=== PATIENT | male | born 1930 | race Caucasian/White ===

== ENCOUNTER 2018-12-08 20:19 | Inpatient (IN) | payer BC, MEDICARE ==
[~2018-12-08] VITALS: Ht 180.3 cm; Wt 68.8 kg
[2018-12-08] MEDS ORDERED: HYDROCODONE/APAP (5/325) TAB PO ONE (21:30)
--- NOTE | 2018-12-08 21:34 | ERD ---
ER Documentation Chief Complaint Chief Complaint bib ra from home for fall, knee pain, and right occipital lac, HPI 88-year-old male with dementia brought in by ambulance from home after he had a ground-level fall. Patient states that he had severe pain in his knees due to osteoarthritis. When he stood up today, he felt pain in his knees which he thinks is why he fell. He denies being dizzy or having any headache, chest pain, or shortness of breath prior to the fall. He is not sure if he hit his head. He is denying any headache at this time. However the patient is not very clear about the events leading to the fall. He is denying any physical pain at this time. ROS Review of systems are limited secondary to patient's dementia Medications Home Meds Reported Medications Memantine HCl/Donepezil HCl (Namzaric 28 mg-10 mg Capsule) 1 Each Cap.spr.24, 1 CAP PO DAILY for 90 Days, #90 12/09/18 Diclofenac Sodium* (Voltaren* Gel) 1% -100 Gm Gel, 2 GM TOP QID, #1 TUB 12/09/18 Levothyroxine Sodium* (Levothyroxine Sodium*) 175 Mcg Tablet, 175 MCG PO QAM for 90 Days, #90 12/09/18 Lisinopril* (Lisinopril*) 10 Mg Tablet, 10 MG PO DAILY for 90 Days 12/09/18 Allergies Allergies: Coded Allergies: No Known Allergy (Unverified , 12/08/18) PMhx/Soc History of Surgery: Yes (Appendectomy) Hx Neurological Disorder: Yes (Dementia) Hx Cardiac Disorders: Yes (Patient's blood pressure was elevated (>120/80) but appears stable without evidence of hypertension emergency or urgency. The patient was counseled about the risks of hypertension and urged to pursue outpatient monitoring and therapy within a week with their primary care physician.) Hx Psychiatric Problems: No Hx Alcohol Use: No Hx Substance Use: No Hx Tobacco Use: No Smoking Status: Never smoker FmHx No significant medical history Physical Exam Vitals Vital Signs Date Temp Pulse Resp B/P (MAP) Pulse Ox O2 O2 Flow FiO2 Time Delivery Rate 12/09/18 72 21 161/72 99 Nasal 2.0 01:16 (101) Cannula 12/08/18 71 17 148/78 97 Nasal 2.0 23:01 (101) Cannula 12/08/18 98.6 67 19 135/82 99 20:28 (99) Physical Exam Const: No acute distress, well-appearing, nontoxic Head: Small superficial abrasion of the right parietal scalp with small hematoma. No skull depression. Mild tenderness to palpation. Eyes: Normal Conjunctiva, PERRLA, EOMI ENT: Normal External Ears, Nose and Mouth. Neck: Full range of motion. No meningismus. No C-spine tenderness Resp: Clear to auscultation bilaterally. Chest wall nontender Cardio: Regular rate and rhythm, no murmurs. 2+ DP and PT pulses bilaterally. 2+ radial pulses bilaterally. Abd: Soft, non tender, non distended. Normal bowel sounds Skin: No petechiae or rashes Back: No midline or flank tenderness Ext: No cyanosis, or edema. Normal to inspection and palpation without any deformities. Full range of motion at all joints. Stable. Neur: Awake and alert, oriented to self and place. Normal speech. No facial asymmetry. Strength and sensations intact in all 4 extremities. Psych: Normal Mood and Affect Result Diagram: 12/08/18212312/08/182123 Results 24 hrs Laboratory Tests Test 12/08/18 21:24 12/08/18 21:30 12/08/18 21:51 White Blood Count 10.2 10^3/ul Red Blood Count 2.93 10^6/ul Hemoglobin 8.8 g/dl Hematocrit 24.1 % Mean Corpuscular Volume 82.3 fl Mean Corpuscular Hemoglobin 30.0 pg Mean Corpuscular 36.5 g/dl Hemoglobin Concent Red Cell Distribution Width 13.3 % Platelet Count 252 10^3/UL Mean Platelet Volume 8.3 fl Immature Granulocytes % 0.400 % Neutrophils % 84.0 % Lymphocytes % 5.6 % Monocytes % 9.0 % Eosinophils % 0.4 % Basophils % 0.6 % Nucleated Red Blood Cells % 0.0 /100WBC Immature Granulocytes # 0.040 10^3/ul Neutrophils # 8.5 10^3/ul Lymphocytes # 0.6 10^3/ul Monocytes # 0.9 10^3/ul Eosinophils # 0.0 10^3/ul Basophils # 0.1 10^3/ul Nucleated Red Blood Cells # 0.0 10^3/ul Prothrombin Time 13.2 Sec Prothrombin Time Ratio 1.0 INR International 0.99 Normalized Ratio Activated Partial Thromboplast 27.8 Sec Time Sodium Level 120 mmol/L Potassium Level 4.5 mmol/L Chloride Level 88 mmol/L Carbon Dioxide Level 23 mmol/L Anion Gap 9 Blood Urea Nitrogen 11 mg/dl Creatinine 0.85 mg/dl Est Glomerular Filtrat mL/min Rate mL/min Glucose Level 92 mg/dl Calcium Level 8.1 mg/dl Bedside Glucose 108 mg/dL Urine Color YELLOW Urine Clarity CLEAR Urine pH 6.0 Urine Specific [place] 1.011 Urine Ketones TRACE mg/dL Urine Nitrite NEGATIVE mg/dL Urine Bilirubin NEGATIVE mg/dL Urine Urobilinogen NEGATIVE mg/dL Urine Leukocyte Esterase NEGATIVE [place]/ul Urine Microscopic RBC 1 /HPF Urine Microscopic WBC 0 /HPF Urine Hemoglobin 1+ mg/dL Urine Osmolality 310 mOsm/kg Urine Random Sodium 32 mmol/L Urine Random Potassium 56.4 mmol/L Urine Glucose NEGATIVE mg/dL Urine Total Protein NEGATIVE mg/dl Osmolality 241 mOsm/kg Current Medications Medications Dose Sig/[place] Start Time Status Last (Trade) Ordered Route PRN Stop Time Admin Dose Reason Admin 1 tab ONCE ONCE 12/08/18 DC 12/08/18 Acetaminophen PO 21:30 12/08/18 21:27 / 21:31 Hydrocodone Bitart (Horace (5/325)) Ondansetron 4 mg ER BRIDGE 12/09/18 HCl (Zofran PRN IV 00:00 12/09/18 Inj) NAUSEA/VOMITI 23:59 NG 650 mg ER BRIDGE 12/09/18 Acetaminophen PRN PO 00:00 12/09/18 (Tylenol .MILD PAIN 23:59 Tab) 1-3 OR TEMP Sodium 1,000 ml @ Q20H IV 12/08/18 12/09/18 Chloride 50 mls/hr 23:42 00:23 IV Flush 3 ml PER 12/09/18 (NS 3 ml) PROTOCOL IV 00:00 Ondansetron 4 mg Q6H PRN 12/09/18 HCl (Zofran IV 00:00 Inj) NAUSEA/VOMITI NG 650 mg Q6H PRN 12/09/18 Acetaminophen PO .PAIN 1-3 00:00 (Tylenol OR TEMP Tab) Zolpidem 5 mg QHS PRN 12/09/18 Tartrate PO .INSOMNIA 00:00 (Ambien) Procedures/MDM EMERGENT LABS AND DIAGNOSTIC STUDIES: Lab Results above were reviewed and interpreted by me. CBC: Anemia, no evidence of infection BMP: Significant hyponatremia and hypochloremia. No e/o clinically significant acidosis, alkalosis, renal failure, diabetic ketoacidosis Troponin within normal limits, not indicative of cardiac ischemia UA: no evidence of infection 12-lead EKG was interpreted by Lavern Larson MD: Sinus Rhythm with first-degree AV block with ventricular rate of 64 beats per minute Normal axis Normal intervals No acute ST or T wave changes suggestive of acute ischemia or STEMI. Radiology Results as interpreted by Radiology below were reviewed by Mars Larson MD: CT head shows no acute abnormalities Chest x-ray shows no significant abnormalities Initial Nursing notes reviewed. Previous Medical Records requested via the Electronic Health Record. EMERGENCY DEPARTMENT COURSE / MEDICAL DECISION MAKING: Patient presents after a ground-level fall with evidence of head injury. He is neurovascularly intact on exam with stable vitals. Labs did show evidence of hyponatremia, which I suspect may be secondary to dehydration. However this will need further work-up. CT head did not show any traumatic abnormalities. I do not suspect acute stroke of the cause for the patient's fall. There does not seem to be any infection on work-up. Spoke with the admitting physician. He accepted the patient for admission. I will defer any further work-up to the i npatient team. Accepting Care Team: Current data and ongoing care discussed. Time: Time of admission Primary Provider: Dr. Mcgowan, macroeconomics professor for PCP Dr. Fall Consulting: none Outstanding Data: none Departure Diagnosis: Primary Impression: Hyponatremia Additional Impressions: Fall with no significant injury Encounter type: initial encounter Qualified Codes: W19.XXXA - Unspecified fall, initial encounter Head trauma Encounter type: initial encounter Qualified Codes: S09.90XA - Unspecified injury of head, initial encounter Hematoma of right parietal scalp Encounter type: initial encounter Qualified Codes: S00.03XA - Contusion of scalp, initial encounter Anemia Anemia type: unspecified type Qualified Codes: D64.9 - Anemia, unspecified Condition: Serious NESS LARSON MD Dec 08, 2018 21:34
[2018-12-08] MEDS ORDERED: SOD CHLORIDE 0.45% 1,000 ML IV SCH (23:42)
[2018-12-09] MEDS ORDERED: ACETAMINOPHEN 325 MG TAB PO PRN
[2018-12-09] MEDS ORDERED: NACL 0.9% 3 ML SYG IV SCH
[2018-12-09] MEDS ORDERED: ONDANSETRON 4 MG INJ IV PRN ×2
[2018-12-09] MEDS ORDERED: LEVO175T6 PO (01:17)
[2018-12-09] MEDS ORDERED: MEMA1CAP3 PO (01:17)
[2018-12-09] MEDS ORDERED: LISI10TA2 PO (01:17)
[2018-12-09] MEDS ORDERED: DICL100G37 TOP (01:17)
[2018-12-09 02:30] VITALS: Ht 180.3 cm; Wt 68.8 kg
[2018-12-09 03:07] VITALS: BP 173/81; PULSE 61; RESP 20
[2018-12-09 07:48] VITALS: BP 145/64; PULSE 60; RESP 20
[2018-12-09] MEDS: PANTOPRAZOLE 40 MG INJ IV SCH (08:05)
[2018-12-09] MEDS: LISINOPRIL 10 MG TAB PO SCH (10:17)
--- NOTE | 2018-12-09 10:36 | HP ---
DATE OF ADMISSION: 12/08/2018 ADMITTING DIAGNOSIS: Hyponatremia, head injury. HISTORY OF PRESENT ILLNESS: The patient is an 88-year-old male with Alzheimer dementia, os teoarthritis, hypertension, hyperthyroidism who was brought in by ambulance from home after he had a ground level fall. The patient has been having increasing pain in his knees and has fallen at home. Patient reported to the emergency room staff and myself today that when he stood up yesterday, he fe lt pain and fell afterwards. The patient denied any antecedent dizziness, loss of consciousness, hea dache, chest pain or shortness of breath prior to the fall. The patient is unclear what he injured a nd does not have any headache or pain other than in his knees. REVIEW OF SYSTEMS: No visual loss, no trouble swallowing, no chest pain, no shortness of breath, no cough, no constipation, no diarrhea, no nausea, no vomiting, no dark stools, no blood in the stools. No burning with urination. There is decreased flow with urination. PAST MEDICAL HISTORY: Hypertension, Alzheimer dementia, osteoarthritis, hyponatremia, history of gas tritis in the past and history of prostate cancer and tibial plateau fracture. PAST SURGICAL HISTORY: Cataract extraction with lens implantation and a radical prostatectomy for pr ostate cancer. FAMILY HISTORY: Noncontributory. MEDICATIONS: 1. Memantine/donepezil 28/10 one daily. 2. Diclofenac sodium gel p.r.n. 3. Levothyroxine 175 mcg daily. 4. Lisinopril 10 mg daily. ALLERGIES: NONE. 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 No tobacco, no alcohol use. Lives with his . PHYSICAL EXAMINATION: VITAL SIGNS: In the emergency room, initial temperature 98.6, pulse of 67, respirations 19, blood pr essure 135/82, oxygen saturation 99% on room air. VITAL SIGNS: Currently, temperature 97.6, pulse 60 and regular, respirations 20, blood pressure 145/ 64 and oxygen saturation 94% on room air. GENERAL: Well-developed, well-nourished male in no acute distress, lying in bed. HEENT: Pseudophakia bilaterally. There is pale mucosa. Extraocular muscles intact. Oropharynx emmanuel ar, no exudate. NECK: 2+ carotid upstroke without bruits. No thyromegaly. No lymphadenopathy. No jugular venous d istention. LUNGS: Clear to auscultation bilaterally. HEART: Regular rate and rhythm. There is a I/ systolic murmur in the right upper sternal border w ithout radiation. ABDOMEN: Soft, nontender, mild obesity, no hepatosplenomegaly noted. No bruits. GENITOURINARY: Atrophic testes. No hernias. Normal male, circumcised. RECTAL: No masses noted, brown stool. EXTREMITIES: No cyanosis, clubbing. There are large bilateral varicosities. There is moderate join t line tenderness with valgus deformity of his bilateral knees and moderate crepitus and tenderness t o palpation along the knee joint line. No effusions. SKIN: There is pallor to the skin. There is a large purplish bruise in the posterior left thigh and there is petechiae/purpura on the anterior left thigh in a linear fashion. There is fading ecchymos es along the upper buttocks and lower back bilaterally. No significant tenderness to palpation. NEUROLOGIC: The patient is alert and oriented x name, unclear of situation, and date. Otherwise, no nfocal examination. LABORATORY EXAMINATION: White blood cell count initially 10.2, hemoglobin of 8.8, hematocrit 24.1, p latelets of 252 with an MCV of 82.3. Repeat white blood cell count is 6.7, hemoglobin of 9.4, hemato crit 26.3, platelets of 279. Absolute retic count of 0.117%, reticulocyte is 3.7%. Sodium initially was 120 with a potassium 4.5, chloride of 88, bicarbonate 23, BUN of 11, creatinine 0.88, glucose of 92, calcium of 8.1. Repeat sodium is 127 with a potassium 3.9, chloride 93, bicarbonate 25, BUN of 9, creatinine 0.78, hemoglobin A1c 5.3. Osmolality serum is 241, calcium 8.6. Iron is 88, TIBC 244, percent saturation 36%, ferritin 219, total bilirubin 1.2, indirect bilirubin 1.2, AST 47, ALT of 23 , alkaline phosphatase 101, lactate dehydrogenase of 885. Albumin 3.5, folate of 3.6. B12 is 379. Urine shows a sodium of 32, potassium of 56.4, 1+ hemoglobin. Osmolality of 310. IMAGING: Brain CT scan shows no acute intracranial abnormality, mild to moderate peripheral and cent ral cerebral volume loss, mild to moderate patchy periventricular and subcortical white matter hypode nsity likely related to chronic microangiopathic changes. Chest x-ray, shallow inspiration with mild bibasilar subsegmental atelectasis. ASSESSMENT AND PLAN: The patient is an 88-year-old male with dementia, hypothyroidism, hyp ertension who fell at home and was found to have significant hyponatremia as well as significant anem ia. The patient is being admitted to telemetry for further evaluation and treatment 1. Hyponatremia, unclear etiology. The patient is having significant sodium in the urine, suggestin g possible syndrome of inappropriate antidiuretic hormone. Repeat sodium is improved at 127. We rylee l have nephrology evaluate the patient and assist with workup and treatment. The patient will be giv en some hypernatremic sodium to assist but we will await nephrology's recommendations before institut ing this. 2. Anemia, unclear etiology. The patient has a normocytic normochromic anemia with normal iron leve ls. The patient does have elevated LDH and stools were brown on examination. We will still do occul t blood x3. We will have hematology evaluate the patient to assist with workup and potential treatme nt. At this point, patient does not require any transfusion. We will continue to monitor his hemato crit and transfuse if necessary. 3. Hypertension. We will continue the patient's lisinopril as well as p.r.n. hydralazine. 4. Hypothyroidism. We will continue the patient's medications and will check thyroid function tests as it can contribute to his hyponatremia. 5. Dementia. We will hold off on patient's medications, but continue to monitor. 6. Sacral decubitus ulcer. We will have a wound consultation. Continue with current dressing treat ment and this was present on admission. Dictated By: SHADI ISSA MD SR/NTS Conf#: [id number] DID#: [id number]
[2018-12-09] MEDS: SOD CHLORIDE 0.9% 1,000 ML IV SCH ×2 (10:46→23:59)
--- NOTE | 2018-12-09 10:54 | CONS ---
DATE OF ADMISSION: 12/08/2018 DATE OF CONSULTATION: 12/08/2018 TYPE OF CONSULTATION: Renal Consultation. Thank you, Dr. Fall, for asking me to participate in the medical management of this patient. REASON FOR CONSULTATION: Hyponatremia. HISTORY OF PRESENT ILLNESS: This 88-year-old man was admitted through the emergency room after he wa s brought in because of a fall at home. He had knee pain and right occipital laceration. The patien t does have a history of dementia and is not a very good historian. On admission to the emergency ro , he was found to have a serum sodium of 120. The emergency room doctor felt that this was related to dehydration. He was given IV fluids and his serum sodium today is up to 127. The patient was al so taking thyroid replacement and Namenda for dementia. At this time, he is awake and alert and conv ersant. He is somewhat oriented to place and he knows the year is 2018, although when questioning hi m further, he does seem confused. That I can tell from the chart, the patient does not have any hist ory of kidney disease, diabetes mellitus. He does have a history of hypertension for which he was ta cesario lisinopril and I assume some arthritis for which he was taking diclofenac gel. CURRENT MEDICATIONS: Include: 1. Synthroid 175 mcg a day. 2. Lisinopril 10 mg a day. 3. Hydralazine p.r.n. high blood pressure. 4. Pantoprazole 40 mg a day. 5. Zofran 4 mg IV p.r.n. 6. Acetaminophen. 7. Zolpidem for sleep. 8. He is currently getting an IV of half normal saline at 50 mL an hour. PHYSICAL EXAMINATION: GENERAL: At this time reveals a well-developed man in no apparent distress. VITAL SIGNS: Temperature 97, pulse is 60, respirations 20, blood pressure 145/64, O2 saturation 94% on room air. HEENT: Head normocephalic. Eyes: Extraocular muscles intact. NOSE AND MOUTH: Normal. NECK: Supple. No neck vein distention. LUNGS: Clear to auscultation. HEART: Regular rhythm. No murmurs, gallops or rubs. ABDOMEN: Soft, nontender, no masses or megaly. EXTREMITIES: No peripheral edema. NEUROLOGIC: Moves all extremities. He is slightly confused. IMPRESSION: 1. Hyponatremia. The patient's serum sodium was low at 120 on admission. It has come up after rece iving IV fluids. Today, serum sodium of 127. The patient had a urine sodium done which was 32. Thi s would be suggestive of some volume depletion, but it is sort of borderline. His thyroid tests are normal except for a slightly low free T3, TSH is normal at 0.475. Folate 3.6, Vitamin B12 379. He d oes have an elevated alkaline phosphatase at 885. He is anemic. I suspect the patient is volume de pleted and this is the cause of his hyponatremia. I would recommend IV fluids of normal saline and t o follow serum sodium. His chest x-ray is unremarkable and his lungs are clear. Therefore, I am not concerned about fluid overload. 2. Anemia. This is being worked up by Dr. Fall. His iron studies seem normal, but he does have an elevated LDH level which brings up the possibility of malignancy. 3. Dementia. 4. Hypertension. PLAN 1. I have reviewed the patient's medications and I do not find any medicines that I would be concern ed about as causing hyponatremia. He can continue his current medications. 2. Will order normal saline at 80 mL an hour and follow serum sodium. 3. Check labs in the morning. 4. I will follow the patient along with you. Dictated By: JEFF GREENWOOD MD, ND/DAY Conf#: [id number] DID#: [id number] CC: TEODORO CARBALLO MD;*End*
[2018-12-09 11:28] VITALS: BP 152/68; PULSE 54; RESP 20
--- NOTE | 2018-12-09 11:47 | CONS ---
Assessment/Plan Assessment/Plan Hospital Course (Demo Recall) 88 yo with Alzheimer's dementia, osteoarthritis, hypertension, hyperthyroidism #anemia normal iron studies B12 borderline, start b12 1000 mcg daily check SPEP/IF/haptoglobin/alphonso LDH is slightly elevated, do not believe this is TTP or overat hemolysis, as typically plt is low and LDH is very significantly elevated in the 1000s may be medications related or given his age, underlying MDS await above w/u thank you Dr Fall for allowing me to participate in the care of this pleasant gentleman Consultation Date/Type/Reason Admit Date/Time Dec 08, 2018 at 23:39 Date/Time of Note DATE: 12/09/18 TIME: 11:42 Hx of Present Illness 88-year-old male with Alzheimer's dementia, osteoarthritis, hypertension, hyperthyroidism who was brought in by ambulance from home after he had a ground level fall. Denies any prior dizziness, loss of consciousness, headache, chest pain or shortness of breath prior to the fall. Labs show a normochromic, near microcytic anemia, normal iron studies, and adequate ferritin. Folate WNL. B12 ok but less than 400. LDH minimally elevated.. Slightly increased indirect bili Pt reports he has lab work done every 2 mos or so but he is not able to tell me what his baseline CBC is he denies any bleeding/weight loss/pain/anorexia unknown if he has had colonoscopy Constitutional: no complaints, improved Eyes: no complaints ENT: no complaints Respiratory: no complaints Cardiovascular: no complaints Gastrointestinal: no complaints Genitourinary: no complaints Musculoskeletal: no complaints Skin: no complaints Neurologic: no complaints Endocrine: no complaints Lymphatic: no complaints Psychological: no complaints, nl mood/affect Past Medical History Home Meds Reported Medications Memantine HCl/Donepezil HCl (Namzaric 28 mg-10 mg Capsule) 1 Each Cap.spr.24, 1 CAP PO DAILY for 90 Days, #90 12/09/18 Diclofenac Sodium* (Voltaren* Gel) 1% -100 Gm Gel, 2 GM TOP QID, #1 TUB 12/09/18 Levothyroxine Sodium* (Levothyroxine Sodium*) 175 Mcg Tablet, 175 MCG PO QAM for 90 Days, #90 12/09/18 Lisinopril* (Lisinopril*) 10 Mg Tablet, 10 MG PO DAILY for 90 Days 12/09/18 Medications Current Medications Ondansetron HCl (Zofran Inj) 4 mg ER BRIDGE PRN IV NAUSEA/VOMITING; Start 12/09/18 at 00:00; Stop 12/09/18 at 23:59 Acetaminophen (Tylenol Tab) 650 mg ER BRIDGE PRN PO .MILD PAIN 1-3 OR TEMP; Start 12/09/18 at 00:00; Stop 12/09/18 at 23:59 IV Flush (NS 3 ml) 3 ml PER PROTOCOL IV ; Start 12/09/18 at 00:00 Ondansetron HCl (Zofran Inj) 4 mg Q6H PRN IV NAUSEA/VOMITING; Start 12/09/18 at 00:00 Acetaminophen (Tylenol Tab) 650 mg Q6H PRN PO .PAIN 1-3 OR TEMP; Start 12/09/18 at 00:00 Zolpidem Tartrate (Ambien) 5 mg QHS PRN PO .INSOMNIA; Start 12/09/18 at 00:00 Pantoprazole (Protonix Iv) 40 mg DAILY@06 IV Last administered on 12/09/18at 08:05; Admin Dose 40 MG; Start 12/09/18 at 08:00 Lisinopril (Zestril) 10 mg DAILY PO Last administered on 12/09/18at 10:17; Admin Dose 10 MG; Start 12/09/18 at 09:00 Levothyroxine Sodium (Synthroid) 175 mcg DAILY@06 PO ; Start 12/10/18 at 06:00 Hydralazine HCl (Apresoline) 5 mg Q6H PRN IV SBP>180 OR DBP>100; Start 12/09/18 at 09:00 Sodium Chloride 1,000 ml @ 80 mls/hr [id number] IV Last administered on 12/09/18at 10:46; Admin Dose 80 MLS/HR; Start 12/09/18 at 10:30 Allergies: Coded Allergies: No Known Allergy (Unverified , 12/08/18) Social History Smoking Status: Never smoker Exam/Review of Systems Exam Vitals Vital Signs Date Temp Pulse Resp B/P (MAP) Pulse Ox O2 O2 Flow FiO2 Time Delivery Rate 12/09/18 97.6 54 20 152/68 94 Room Air 11:28 (96) 12/09/18 2.0 02:45 Intake and Output 12/08/18 12/08/18 12/09/18 1515:00 23:00 07:00 OutputOutput Total 800 ml BalanceBalance -800 ml Constitutional: alert, oriented, well developed, frail Psych: no complaints, nl mood/affect Neck: supple, non-tender Gastrointestinal: soft, nl liver, spleen, non-tender Musculoskeletal: nl extremities to inspection, nl gait and stance 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, nl mental status, nl speech, nl strength Results Result Diagram: 12/09/18 0638 12/09/18 0638 Results 24hrs Laboratory Tests Test 12/08/18 21:24 12/08/18 21:30 12/08/18 21:51 12/09/18 06:38 White Blood Count 10.2 6.7 # Red Blood Count 2.93 L 3.19 L Hemoglobin 8.8 L 9.4 L Hematocrit 24.1 L 26.3 L Mean Corpuscular Volume 82.3 82.4 Mean Corpuscular 30.0 29.5 Hemoglobin Mean Corpuscular 36.5 35.7 Hemoglobin Concent Red Cell Distribution 13.3 13.5 Width Platelet Count 252 279 Mean Platelet Volume 8.3 8.3 Immature Granulocytes % 0.400 0.300 Neutrophils % 84.0 H 79.4 H Lymphocytes % 5.6 L 8.5 L Monocytes % 9.0 9.9 Eosinophils % 0.4 1.3 Basophils % 0.6 0.6 Nucleated Red Blood 0.0 0.0 Cells % Immature Granulocytes # 0.040 H 0.020 Neutrophils # 8.5 H 5.4 Lymphocytes # 0.6 L 0.6 L Monocytes # 0.9 0.7 Eosinophils # 0.0 0.1 Basophils # 0.1 0.0 Nucleated Red Blood 0.0 0.0 Cells # Prothrombin Time 13.2 Prothrombin Time Ratio 1.0 INR International 0.99 Normalized Ratio Activated 27.8 Partial Thromboplast Time Sodium Level 120 L 127 L Potassium Level 4.5 3.9 Chloride Level 88 L 93 L Carbon Dioxide Level 23 25 Anion Gap 9 9 Blood Urea Nitrogen 11 9 Creatinine 0.85 0.78 Est Glomerular Filtrat Rate mL/min Glucose Level 92 85 Calcium Level 8.1 L 8.6 Bedside Glucose 108 Urine Color YELLOW Urine Clarity CLEAR Urine pH 6.0 Urine Specific [place] 1.011 Urine Ketones TRACE A Urine Nitrite NEGATIVE Urine Bilirubin NEGATIVE Urine Urobilinogen NEGATIVE Urine Leukocyte Esterase NEGATIVE Urine Microscopic RBC 1 Urine Microscopic WBC 0 Urine Hemoglobin 1+ H Urine Osmolality 310 Urine Random Sodium 32 Urine Random Potassium 56.4 Urine Glucose NEGATIVE Urine Total Protein NEGATIVE Osmolality 241 L Hemoglobin A1c 5.3 Iron Level 88 Total Iron Binding 244 Capacity Percent Iron Saturation 36 Ferritin 219.0 Total Bilirubin 1.2 Direct Bilirubin 0.00 Indirect Bilirubin 1.2 H Aspartate Amino 47 H Transf (AST/SGOT) Alanine 23 Aminotransferase (ALT/SG PT) Alkaline Phosphatase 101 Lactate Dehydrogenase 885 H Total Protein 6.2 Albumin 3.5 Globulin 2.70 Albumin/Globulin Ratio 1.29 Vitamin B12 Level 379 Folate 3.6 Test 12/09/18 07:06 Erythrocyte 8 Sedimentation Rate Absolute Reticulocyte 0.117 H Count Percent Reticulocyte 3.7 H Count Thyroid Stimulating 0.475 Hormone (TSH) Free Thyroxine 1.40 Free Triiodothyronine 2.06 L (T3) pg/mL Medications Medication Current Medications Ondansetron HCl (Zofran Inj) 4 mg ER BRIDGE PRN IV NAUSEA/VOMITING; Start 12/09/18 at 00:00; Stop 12/09/18 at 23:59 Acetaminophen (Tylenol Tab) 650 mg ER BRIDGE PRN PO .MILD PAIN 1-3 OR TEMP; St art 12/09/18 at 00:00; Stop 12/09/18 at 23:59 IV Flush (NS 3 ml) 3 ml PER PROTOCOL IV ; Start 12/09/18 at 00:00 Ondansetron HCl (Zofran Inj) 4 mg Q6H PRN IV NAUSEA/VOMITING; Start 12/09/18 at 00:00 Acetaminophen (Tylenol Tab) 650 mg Q6H PRN PO .PAIN 1-3 OR TEMP; Start 12/09/18 at 00:00 Zolpidem Tartrate (Ambien) 5 mg QHS PRN PO .INSOMNIA; Start 12/09/18 at 00:00 Pantoprazole (Protonix Iv) 40 mg DAILY@06 IV Last administered on 12/09/18at 08:05; Admin Dose 40 MG; Start 12/09/18 at 08:00 Lisinopril (Zestril) 10 mg DAILY PO Last administered on 12/09/18at 10:17; Admin Dose 10 MG; Start 12/09/18 at 09:00 Levothyroxine Sodium (Synthroid) 175 mcg DAILY@06 PO ; Start 12/10/18 at 06:00 Hydralazine HCl (Apresoline) 5 mg Q6H PRN IV SBP>180 OR DBP>100; Start 12/09/18 at 09:00 Sodium Chloride 1,000 ml @ 80 mls/hr [id number] IV Last administered on 12/09/18at 10:46; Admin Dose 80 MLS/HR; Start 12/09/18 at 10:30 MINDY MEAD Dec 09, 2018 11:47
[2018-12-09 15:24] VITALS: BP 146/69; PULSE 59; RESP 20
[2018-12-09 20:00] VITALS: BP 175/79; PULSE 64; PULSE 67; RESP 20
[2018-12-09] MEDS: ZOLPIDEM 5 MG TAB PO PRN (21:04)
[2018-12-10] VITALS: BP 172/76; PULSE 59; RESP 22
[2018-12-10 04:00] VITALS: BP 184/82; PULSE 68; RESP 20
[2018-12-10] MEDS ORDERED: PANTOPRAZOLE 40 MG INJ IV SCH (06:00)
[2018-12-10] MEDS: PANTOPRAZOLE 40 MG INJ IV SCH (06:24)
[2018-12-10] MEDS: LEVOTHYROXINE 175 MCG TAB PO SCH (06:24)
[2018-12-10] MEDS: hydrALAzine 20 MG INJ IV PRN (06:25)
[2018-12-10] MEDS: ACETAMINOPHEN 325 MG TAB PO PRN (06:54)
[2018-12-10 08:26] VITALS: BP 178/75; PULSE 67; RESP 17
[2018-12-10] MEDS: LISINOPRIL 10 MG TAB PO SCH (08:53)
--- NOTE | 2018-12-10 09:25 | PN ---
DATE: 12/10/2018 SUBJECTIVE: Patient is complaining of knee pain, but otherwise without complaint. OBJECTIVE: VITAL SIGNS: Temperature 97.5, pulse 67, respirations 17, blood pressure 178/75 but as high as 184/8 2, oxygen saturation 94% on room air. GENERAL: Well-developed, well-nourished male in no acute distress, lying in bed. SKIN: Multiple areas of ecchymoses on extremities, back. LUNGS: Clear to auscultation bilaterally. HEART: Regular rate and rhythm. ABDOMEN: Soft, nontender. EXTREMITIES: No cyanosis, clubbing; knees, moderate tenderness to palpation along the joint line. NEUROLOGIC: Patient is alert and oriented to name and situation, otherwise nonfocal. LABORATORY DATA: Sodium 130, potassium 3.7, chloride 97, bicarbonate 25, BUN of 9, creatinine 0.8, g lucose of 90. Lactate dehydrogenase 777, total protein 5.4, free T3 of 2.06. TSH is 0.475, free T4 1.4, hemoglobin 9.6, hematocrit 26.3, platelets 256. White blood cell count 7.0, haptoglobin is pend ing. ASSESSMENT AND PLAN: 1. Hyponatremia, improved with hydration. Appreciate Dr. Patterson's input into this case. We rylee l continue with rehydration and monitoring patient's sodium and continue on telemetry due to potentia l neurologic compromise. 2. Anemia, stable, unclear etiology. Appreciate Dr. Romo's input into this case. We will rupa nue with workup and no transfusion needed at this point and no evidence of acute bleed. Patient has not had colonoscopy in years, but he is 88 years old, so has not been done in recent history. 3. Hypertension, labile, likely due to meds, IV fluids, sodium. Will continue with patient's medica tions as well as p.r.n. hydralazine. 4. Dementia, stable. Continue off of his medications, 5. Arthritis. We will restart patient's diclofenac gel. Dictated By: SHADI ISSA MD SR/NTS Conf#: [id number] DID#: [id number] CC: TEODORO CARBALLO MD;*[facility]*
[2018-12-10] MEDS: DICLOFENAC SODIUM 1% GEL 100 GM TUBE TP SCH ×4 (10:22→20:40)
[2018-12-10] MEDS: SOD CHLORIDE 0.9% 1,000 ML IV SCH (10:25)
[2018-12-10 12:03] VITALS: BP 165/77; PULSE 66; RESP 17
--- NOTE | 2018-12-10 14:17 | CONS ---
Assessment/Plan Assessment/Plan Hospital Course (Demo Recall) 1. Hyponatremia. His serum sodium is correcting with IV saline. His hyponatremia seems to be due to volume depletion. I would continue IV saline. Check labs in a.m. 2. Anemia. This is being worked up by Dr. Fall and Dr. Romo for hematology. 3. Dementia. 4. Hypertension. 5. He complains of bilateral knee joint pain. Will instruct nurse to give Tylenol on an as-needed basis to see if that helps with the pain control. Consultation Date/Type/Reason Admit Date/Time Dec 08, 2018 at 23:39 Initial Consult Date Type of Consult Nephrology Date/Time of Note DATE: 12/10/18 TIME: 14:11 24 HR Interval Summary Free Text/Dictation This patient is being seen in nephrologic follow-up. He is awake. He is complaining of severe knee pain bilateral. Exam/Review of Systems Exam Vitals Vital Signs Date Temp Pulse Resp B/P (MAP) Pulse Ox O2 O2 Flow FiO2 Time Delivery Rate 12/10/18 98.8 66 17 165/77 95 12:03 (106) 12/09/18 Room Air 15:24 12/09/18 2.0 02:45 Intake and Output 12/09/18 12/09/18 12/10/18 1515:00 23:00 07:00 IntakeIntake Total 1100 ml 480 ml 600 ml OutputOutput Total 450 ml 850 ml 500 ml BalanceBalance 650 ml -370 ml 100 ml Constitutional: alert, oriented, frail Psych: confusion Respiratory: clear to auscultation, normal air movement Cardiovascular: regular rate and rhythm Gastrointestinal: soft, non-tender Musculoskeletal: nl extremities to inspection Results Result Diagram: 12/10/18 0614 12/10/18 0614 Results 24hrs Laboratory Tests Test 12/10/18 06:14 White Blood Count 7.0 Red Blood Count 3.11 L Hemoglobin 9.2 L Hematocrit 26.3 L Mean Corpuscular Volume 84.6 Mean Corpuscular Hemoglobin 29.6 Mean Corpuscular Hemoglobin Concent 35.0 Red Cell Distribution Width 14.4 Platelet Count 256 Mean Platelet Volume 8.6 Immature Granulocytes % 0.400 Neutrophils % 80.3 H Lymphocytes % 7.6 L Monocytes % 9.6 Eosinophils % 1.4 Basophils % 0.7 Nucleated Red Blood Cells % 0.0 Immature Granulocytes # 0.030 Neutrophils # 5.6 Lymphocytes # 0.5 L Monocytes # 0.7 Eosinophils # 0.1 Basophils # 0.1 Nucleated Red Blood Cells # 0.0 Sodium Level 130 L Potassium Level 3.7 Chloride Level 97 Carbon Dioxide Level 25 Anion Gap 8 Blood Urea Nitrogen 9 Creatinine 0.80 Est Glomerular Filtrat Rate mL/min Glucose Level 90 Calcium Level 8.2 L Total Bilirubin 0.9 Direct Bilirubin 0.00 Indirect Bilirubin 0.9 Aspartate Amino Transf (AST/SGOT) 42 Alanine Aminotransferase (ALT/SGPT) 16 Alkaline Phosphatase 90 Lactate Dehydrogenase 777 H Total Protein 6.1 Albumin 3.4 Globulin 2.70 Albumin/Globulin Ratio 1.25 Medications Medication Current Medications IV Flush (NS 3 ml) 3 ml PER PROTOCOL IV ; Start 12/09/18 at 00:00 Ondansetron HCl (Zofran Inj) 4 mg Q6H PRN IV NAUSEA/VOMITING; Start 12/09/18 at 00:00 Acetaminophen (Tylenol Tab) 650 mg Q6H PRN PO .PAIN 1-3 OR TEMP Last administered on 12/10/18at 06:54; Admin Dose 650 MG; Start 12/09/18 at 00:00 Zolpidem Tartrate (Ambien) 5 mg QHS PRN PO .INSOMNIA Last administered on 9at 21:04; Admin Dose 5 MG; Start 12/09/18 at 00:00 Pantoprazole (Protonix Iv) 40 mg DAILY@06 IV Last administered on 12/10/18 06:24; Admin Dose 40 MG; Start 12/09/18 at 08:00 Levothyroxine Sodium (Synthroid) 175 mcg DAILY@06 PO Last administered on 12/10/18 06:24; Admin Dose 175 MCG; Start 12/10/18 at 06:00 Hydralazine HCl (Apresoline) 5 mg Q6H PRN IV SBP>180 OR DBP>100 Last administered on 12/10/18 06:25; Admin Dose 5 MG; Start 12/09/18 at 09:00 Sodium Chloride 1,000 ml @ 80 mls/hr [id number] IV Last administered on 12/10/18at 10:25; Admin Dose 80 MLS/HR; Start 12/09/18 at 10:30 Diclofenac Sodium (Voltaren 1% Gel) 4 gm QID TP Last administered on 12/10/18at 12:22; Admin Dose 4 GM; Start 12/10/18 at 09:30 Lisinopril (Zestril) 20 mg DAILY PO ; Start 12/11/18 at 09:00; Status UNV JEFF GREENWOOD MD Dec 10, 2018 14:17
[2018-12-10 16:08] VITALS: BP 178/88; PULSE 67; RESP 17
[2018-12-10 20:00] VITALS: BP 162/72; PULSE 68; RESP 19
[2018-12-11] VITALS (7 sets, daily range): BP systolic 122–175; BP diastolic 59–78; PULSE 58–85; RESP 18–20
[2018-12-11] MEDS: LEVOTHYROXINE 175 MCG TAB PO SCH (06:00)
[2018-12-11] MEDS: PANTOPRAZOLE 40 MG INJ IV SCH (06:00)
[2018-12-11] MEDS: SOD CHLORIDE 0.9% 1,000 ML IV SCH ×3 (06:01→20:15)
[2018-12-11] MEDS ORDERED: LISINOPRIL 10 MG TAB PO SCH (09:00)
--- NOTE | 2018-12-11 09:19 | PN ---
DATE: 12/11/2018 SUBJECTIVE: The patient without complaint except for her knees. Otherwise, fine. OBJECTIVE: VITAL SIGNS: Temperature 98.6, pulse 78 and regular, respirations 18, blood pressure 157/75, oxygen saturation 98% on room air. GENERAL: Well-developed, well-nourished male in no acute distress, lying in bed. LUNGS: Clear to auscultation bilaterally. HEART: Regular rate and rhythm. ABDOMEN: Soft, nontender, mild obesity. EXTREMITIES: No cyanosis, clubbing or edema. 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 NEUROLOGIC: Patient is alert and oriented x1 only. Otherwise, nonfocal. SKIN: Ecchymoses or fading. LABORATORY DATA: Occult blood stool negative x1. Sodium 131, potassium 3.9, chloride 98, bicarbonat e 25, BUN of 9, creatinine 0.73, magnesium 1.9, hemoglobin 9.2, hematocrit 26.3. White blood cell co unt 7.6, platelets of 271. ASSESSMENT AND PLAN 1. Hyponatremia continues to improve, but slowly. Continue to monitor and can continue on telemetry for now. If continues to improve, we will discontinue off of telemetry. 2. Severe anemia, stable, but unclear etiology. The patient with normal iron studies. Otherwise, n ormal testing. The patient may need bone marrow biopsy or other tests in order to evaluate further. We will continue with workup and appreciate hematology's input. 3. Hypertension, improved with the increase in lisinopril. Continue with lisinopril as well as p.r. n. hydralazine. 4. Hypothyroidism, stable. Continue with meds. 5. Dementia, stable. Continue off meds as were not beneficial. Dictated By: SHADI ISSA MD SR/NTS Conf#: [id number] DID#: [id number] CC: JEFF GREENWOOD MD; TEODORO CARBALLO MD;*[facility]*
[2018-12-11] MEDS: DICLOFENAC SODIUM 1% GEL 100 GM TUBE TP SCH ×4 (11:13→20:15)
[2018-12-11] MEDS: ACETAMINOPHEN 325 MG TAB PO PRN ×2 (11:13→20:16)
--- NOTE | 2018-12-11 11:42 | CONS ---
Assessment/Plan Assessment/Plan Hospital Course (Demo Recall) 1. Hyponatremia. His serum sodium is correcting with IV saline. His hyponatremia seems to be due to volume depletion. I would continue current IV saline. Check labs in a.m. 2. Anemia. This is being worked up by Dr. Fall and Dr. Romo for hematology. 3. Dementia. 4. Hypertension. 5. He is not complaining of pain today. Consultation Date/Type/Reason Admit Date/Time Dec 08, 2018 at 23:39 Initial Consult Date Type of Consult Nephrology Date/Time of Note DATE: 12/11/18 TIME: 11:40 24 HR Interval Summary Free Text/Dictation This patient is being seen in nephrologic follow-up. He is sleeping but arouses easily to verbal stimuli. He has no new complaints. Constitutional: no complaints, improved Exam/Review of Systems Exam Vitals Vital Signs Date Temp Pulse Resp B/P (MAP) Pulse Ox O2 O2 Flow FiO2 Time Delivery Rate 12/11/18 98.0 67 20 175/75 96 11:26 (108) 12/09/18 Room Air 15:24 12/09/18 2.0 02:45 Intake and Output 12/10/18 12/10/18 12/11/18 1515:00 23:00 07:00 IntakeIntake Total 870 ml 350 ml 1300 ml OutputOutput Total 1350 ml 600 ml 500 ml BalanceBalance -480 ml -250 ml 800 ml Constitutional: alert, oriented, frail Psych: confusion Respiratory: clear to auscultation, normal air movement Cardiovascular: regular rate and rhythm Gastrointestinal: soft, nl liver, spleen Musculoskeletal: nl extremities to inspection Results Result Diagram: 12/11/18 0612 12/11/18 0609 Results 24hrs Laboratory Tests Test 12/10/18 16:10 12/11/18 06:09 12/11/18 06:12 Stool Occult Blood NEGATIVE Sodium Level 131 L Potassium Level 3.9 Chloride Level 98 Carbon Dioxide Level 25 Anion Gap 8 Blood Urea Nitrogen 9 Creatinine 0.73 Est Glomerular Filtrat Rate mL/min Glucose Level 87 Calcium Level 8.4 Magnesium Level 1.9 Total Bilirubin 1.0 Direct Bilirubin 0.00 Indirect Bilirubin 1.0 Aspartate Amino Transf (AST/SGOT) 45 Alanine Aminotransferase (ALT/SGPT) 21 Alkaline Phosphatase 90 Total Protein 6.0 L Albumin 3.4 Globulin 2.60 Albumin/Globulin Ratio 1.30 White Blood Count 7.6 Red Blood Count 3.15 L Hemoglobin 9.2 L Hematocrit 26.3 L Mean Corpuscular Volume 83.5 Mean Corpuscular Hemoglobin 29.2 Mean Corpuscular Hemoglobin Concent 35.0 Red Cell Distribution Width 14.5 Platelet Count 271 Mean Platelet Volume 8.8 Immature Granulocytes % 0.500 H Neutrophils % 74.8 Lymphocytes % 9.7 L Monocytes % 11.8 H Eosinophils % 2.4 Basophils % 0.8 Nucleated Red Blood Cells % 0.0 Immature Granulocytes # 0.040 H Neutrophils # 5.7 Lymphocytes # 0.7 L Monocytes # 0.9 Eosinophils # 0.2 Basophils # 0.1 Nucleated Red Blood Cells # 0.0 Medications Medication Current Medications IV Flush (NS 3 ml) 3 ml PER PROTOCOL IV ; Start 12/09/18 at 00:00 Ondansetron HCl (Zofran Inj) 4 mg Q6H PRN IV NAUSEA/VOMITING; Start 12/09/18 at 00:00 Acetaminophen (Tylenol Tab) 650 mg Q6H PRN PO .PAIN 1-3 OR TEMP Last administered on 12/11/18 11:13; Admin Dose 650 MG; Start 12/09/18 at 00:00 Zolpidem Tartrate (Ambien) 5 mg QHS PRN PO .INSOMNIA Last administered on 12/09/18 21:04; Admin Dose 5 MG; Start 12/09/18 at 00:00 Pantoprazole (Protonix Iv) 40 mg DAILY@06 IV Last administered on 12/11/18 06:00; Admin Dose 40 MG; Start 12/09/18 at 08:00 Levothyroxine Sodium (Synthroid) 175 mcg DAILY@06 PO Last administered on 12/11/18 06:00; Admin Dose 175 MCG; Start 12/10/18 at 06:00 Hydralazine HCl (Apresoline) 5 mg Q6H PRN IV SBP>180 OR DBP>100 Last administered on 12/10/18 06:25; Admin Dose 5 MG; Start 12/09/18 at 09:00 Sodium Chloride 1,000 ml @ 80 mls/hr [id number] IV Last administered on 12/11/18 06:01; Admin Dose 80 MLS/HR; Start 12/09/18 at 10:30 Diclofenac Sodium (Voltaren 1% Gel) 4 gm QID TP Last administered on 12/11/18at 11:13; Admin Dose 4 GM; Start 12/10/18 at 09:30 Lisinopril (Zestril) 20 mg DAILY PO Last administered on 12/11/18at 11:14; Admin Dose 20 MG; Start 12/11/18 at 09:00 JEFF GREENWOOD MD Dec 11, 2018 11:42
[2018-12-11] MEDS: LISINOPRIL 20 MG TAB PO SCH (20:16)
[2018-12-12 03:50] VITALS: BP 135/67; PULSE 65; RESP 18
[2018-12-12] MEDS: PANTOPRAZOLE 40 MG INJ IV SCH (05:45)
[2018-12-12] MEDS: LEVOTHYROXINE 175 MCG TAB PO SCH (05:45)
[2018-12-12 06:40] VITALS: BP_SYST 130; BP_SYST 132; BP_DIAS 60; BP_DIAS 70
[2018-12-12 07:45] VITALS: BP 175/82; PULSE 61; RESP 20
--- NOTE | 2018-12-12 08:40 | PN ---
DATE: 12/12/2018 SUBJECTIVE: The patient complains of knee pain, but otherwise without complaint. OBJECTIVE: VITAL SIGNS: Temperature 98.2, pulse 61 and regular, respirations 20, blood pressure 175/82, oxygen saturation 96% on room air. GENERAL: Well-developed, well-nourished male in no acute distress, lying in bed. LUNGS: Clear to auscultation bilaterally. HEART: Regular rate and rhythm. ABDOMEN: Soft, nontender. EXTREMITIES: No cyanosis, clubbing or edema. There are large varicosities bilaterally. NEUROLOGIC: Patient is alert and oriented x2. LABORATORY DATA: Pending at the time of this dictation. ASSESSMENT AND PLAN 1. Hyponatremia, improved. Will await today's results, but will continue with IV hydration and monit oring. Patient no longer needs telemetry monitoring and we can transfer the patient to medical/surgi scarlet floor. 2. Anemia, remains stable, but still significant. Will await for further recommendations from Dr. Charbel turk regarding further workup and whether or not the patient needs a bone marrow biopsy or other s tudies. No need for transfusion at this time. 3. Hypertension, remains labile and lisinopril has been increased and we will continue with p.r.n. h ydralazine. 4. Dementia, stable. Continue to monitor. No need for meds. 5. Hypothyroidism, stable. Continue with meds. 6. Osteoarthritis. Continue with p.r.n. analgesics. Dictated By: SHADI ISSA MD SR/NTS Conf#: [id number] DID#: [id number] CC: JEFF GREENWOOD MD; TEODORO CARBALLO MD;*[facility]*
[2018-12-12] MEDS: DICLOFENAC SODIUM 1% GEL 100 GM TUBE TP SCH ×4 (08:48→20:02)
[2018-12-12] MEDS: LISINOPRIL 20 MG TAB PO SCH ×2 (09:16→20:01)
--- NOTE | 2018-12-12 09:52 | CONS ---
Assessment/Plan Assessment/Plan Hospital Course (Demo Recall) 1. Hyponatremia. His serum sodium today is slightly lower than yesterday. He may have some component of SIADH and therefore I will discontinue IV fluids for now and continue to monitor serum sodium. I will add a serum cortisol to his blood that was drawn today. 2. Anemia. This is being worked up by Dr. Fall and Dr. Romo for hematology. 3. Dementia. 4. Hypertension. He continues to have elevation spikes in blood pressure. We will continue current medication for now and adjust accordingly. 5. He is complaining of knee pain today. Consultation Date/Type/Reason Admit Date/Time Dec 08, 2018 at 23:39 Initial Consult Date Type of Consult Nephrology Date/Time of Note DATE: 12/12/18 TIME: 09:48 24 HR Interval Summary Free Text/Dictation This patient is being seen in nephrologic follow-up. He is sleeping but arouses easily to verbal stimuli. His only complaint is his knee pain. Exam/Review of Systems Exam Vitals Vital Signs Date Temp Pulse Resp B/P (MAP) Pulse Ox O2 O2 Flow FiO2 Time Delivery Rate 12/12/18 Room Air 08:30 12/12/18 98.2 61 20 175/82 96 07:45 (113) 12/09/18 2.0 02:45 Intake and Output 12/11/18 12/11/18 12/12/18 1515:00 23:00 07:00 IntakeIntake Total 2470 ml 480 ml OutputOutput Total 1950 ml BalanceBalance 520 ml 480 ml Constitutional: alert, oriented, frail Psych: confusion Respiratory: clear to auscultation, normal air movement Cardiovascular: regular rate and rhythm Gastrointestinal: soft, non-tender Musculoskeletal: nl extremities to inspection Results Result Diagram: 12/12/1817 12/12/1817 Results 24hrs Laboratory Tests Test 12/12/18 07:17 White Blood Count 6.7 Red Blood Count 3.04 L Hemoglobin 9.0 L Hematocrit 25.6 L Mean Corpuscular Volume 84.2 Mean Corpuscular Hemoglobin 29.6 Mean Corpuscular Hemoglobin Concent 35.2 Red Cell Distribution Width 14.5 Platelet Count 269 Mean Platelet Volume 9.0 Immature Granulocytes % 0.300 Neutrophils % 69.8 Lymphocytes % 13.7 L Monocytes % 11.0 Eosinophils % 4.0 Basophils % 1.2 Nucleated Red Blood Cells % 0.0 Immature Granulocytes # 0.020 Neutrophils # 4.7 Lymphocytes # 0.9 Monocytes # 0.7 Eosinophils # 0.3 Basophils # 0.1 Nucleated Red Blood Cells # 0.0 Sodium Level 129 L Potassium Level 3.8 Chloride Level 99 Carbon Dioxide Level 21 Anion Gap 9 Blood Urea Nitrogen 10 Creatinine 0.76 Est Glomerular Filtrat Rate mL/min Glucose Level 86 Calcium Level 8.1 L Total Bilirubin 0.6 Direct Bilirubin 0.00 Indirect Bilirubin 0.6 Aspartate Amino Transf (AST/SGOT) 30 Alanine Aminotransferase (ALT/SGPT) 21 Alkaline Phosphatase 87 Total Protein 5.7 L Albumin 3.0 L Globulin 2.70 Albumin/Globulin Ratio 1.11 Medications Medication Current Medications IV Flush (NS 3 ml) 3 ml PER PROTOCOL IV ; Start 12/09/18 at 00:00 Ondansetron HCl (Zofran Inj) 4 mg Q6H PRN IV NAUSEA/VOMITING; Start 12/09/18 at 00:00 Acetaminophen (Tylenol Tab) 650 mg Q6H PRN PO .PAIN 1-3 OR TEMP Last administered on 12/11/18 20:16; Admin Dose 650 MG; Start 12/09/18 at 00:00 Zolpidem Tartrate (Ambien) 5 mg QHS PRN PO .INSOMNIA Last administered on 12/09/18 21:04; Admin Dose 5 MG; Start 12/09/18 at 00:00 Pantoprazole (Protonix Iv) 40 mg DAILY@06 IV Last administered on 12/12/18 05:45; Admin Dose 40 MG; Start 12/09/18 at 08:00 Levothyroxine Sodium (Synthroid) 175 mcg DAILY@06 PO Last administered on 12/12/18 05:45; Admin Dose 175 MCG; Start 12/10/18 at 06:00 Hydralazine HCl (Apresoline) 5 mg Q6H PRN IV SBP>180 OR DBP>100 Last administered on 12/10/18 06:25; Admin Dose 5 MG; Start 12/09/18 at 09:00 Sodium Chloride 1,000 ml @ 80 mls/hr [id number] IV Last administered on 12/11/18 20:15; Admin Dose 80 MLS/HR; Start 12/09/18 at 10:30 Diclofenac Sodium (Voltaren 1% Gel) 4 gm QID TP Last administered on 12/12/18at 08:48; Admin Dose 4 GM; Start 12/10/18 at 09:30 Lisinopril (Zestril) 20 mg BID PO Last administered on 12/12/18at 09:16; Admin Dose 20 MG; Start 12/11/18 at 21:00 JEFF GREENWOOD MD Dec 12, 2018 09:52
[2018-12-12] MEDS: hydrALAzine 20 MG INJ IV PRN (12:03)
[2018-12-12 12:24] VITALS: BP 187/90; PULSE 57; RESP 19
[2018-12-12 13:48] VITALS: BP 154/72; PULSE 73
[2018-12-12] MEDS: ACETAMINOPHEN 325 MG TAB PO PRN ×2 (13:50→20:02)
[2018-12-12 19:48] VITALS: BP 185/85; PULSE 66; RESP 19
[2018-12-12] MEDS: ZOLPIDEM 5 MG TAB PO PRN (20:02)
[2018-12-13] VITALS (7 sets, daily range): BP systolic 150–184; BP diastolic 65–90; PULSE 63–76; RESP 18–20
[2018-12-13] MEDS: PANTOPRAZOLE 40 MG INJ IV SCH (05:47)
[2018-12-13] MEDS: LEVOTHYROXINE 175 MCG TAB PO SCH (05:47)
--- NOTE | 2018-12-13 08:26 | PN ---
DATE: 12/13/2018 SUBJECTIVE: The patient without complaint except for knee pain. OBJECTIVE: VITAL SIGNS: Temperature 98.0, pulse 73, respirations 20, blood pressure 150/76, but earlier it was 185/85, oxygen saturation 95% on room air. GENERAL: Well-developed, well-nourished male in no acute distress. LUNGS: Clear to auscultation bilaterally. HEART: Regular rate and rhythm. ABDOMEN: Soft, nontender. EXTREMITIES: There is tenderness to palpation along the joint lines bilaterally of the knees. No cy anosis, clubbing or edema in the extremities. NEUROLOGIC: Alert and oriented x2, otherwise nonfocal. LABORATORY DATA: Hemoglobin 9.5, hematocrit 27.2, platelets 296. White blood cell count 5.9. Sodiu m 132, potassium 3.9, chloride 100, bicarbonate 23, BUN of 9, creatinine 0.77, glucose 91, albumin 3. 4. Random cortisol is 13.8. ASSESSMENT AND PLAN: 1. Hyponatremia, continues to improve slowly with hydration. Will continue to monitor and keep IV f luids going. 2. Anemia, remains stable. We will recontact Dr. Romo as she has not seen the patient since 10/2018 for further workup, possible biopsy of the bone marrow. Will continue to monitor, but no nee d for transfusion. 3. Hypertension, remains labile but under fair control at times. We will continue with current medi cations and p.r.n. hydralazine. 4. Hypothyroidism, stable. Continue with meds. 5. Dementia, stable. Dictated By: SHADI ISSA MD SR/NTS Conf#: [id number] DID#: [id number] CC: TEODORO CARBALLO MD;*End*
[2018-12-13] MEDS: DICLOFENAC SODIUM 1% GEL 100 GM TUBE TP SCH ×4 (09:06→21:33)
[2018-12-13] MEDS: LISINOPRIL 20 MG TAB PO SCH ×2 (09:06→21:32)
--- NOTE | 2018-12-13 14:22 | CONS ---
Assessment/Plan Assessment/Plan Hospital Course (Demo Recall) 88 yo with Alzheimer's dementia, osteoarthritis, hypertension, hyperthyroidism #anemia -normal iron studies -B12 borderline, start b12 1000 mcg daily. WILL ORDER NOW SPEP negative making monoclonal gammopathy unlikely. -Stephen negative and haptoglobin detectable making hemolysis unlikely -LDH is slightly elevated, do not believe this is TTP or overat hemolysis, as typically plt is low and LDH is very significantly elevated in the 1000s -will check epo level to see if patient would benefit from procrit -ig Hg continues to drop can proceed with BM Bx as an out patient Consultation Date/Type/Reason Admit Date/Time Dec 08, 2018 at 23:39 Initial Consult Date December 09 Type of Consult hematology Reason for Consultation anemia Requesting Provider: SHADI ISSA MD- Date/Time of Note DATE: 12/13/18 TIME: 14:17 24 HR Interval Summary Free Text/Dictation no acute overnight events Exam/Review of Systems Exam Vitals Vital Signs Date Temp Pulse Resp B/P (MAP) Pulse Ox O2 O2 Flow FiO2 Time Delivery Rate 12/13/18 63 160/72 09:43 (101) 12/13/18 98.3 18 95 Room Air 08:10 Intake and Output 12/12/18 12/12/18 12/13/18 1515:00 23:00 07:00 IntakeIntake Total 1800 ml 420 ml OutputOutput Total 1300 ml 200 ml 150 ml BalanceBalance 500 ml 220 ml -150 ml Psych: confusion Head: normocephalic Eyes: nl conjunctiva ENMT: nl external ears & nose Neck: supple Respiratory: clear to auscultation Cardiovascular: regular rate and rhythm Gastrointestinal: soft Musculoskeletal: nl extremities to inspection Results Result Diagram: 12/13/18 0517 12/13/18 0517 Results 24hrs Laboratory Tests Test 12/13/18 05:17 12/13/18 13:36 White Blood Count 5.9 Red Blood Count 3.23 L Hemoglobin 9.5 L Hematocrit 27.2 L Mean Corpuscular Volume 84.2 Mean Corpuscular Hemoglobin 29.4 Mean Corpuscular Hemoglobin Concent 34.9 Red Cell Distribution Width 14.6 H Platelet Count 296 Mean Platelet Volume 8.6 Immature Granulocytes % 0.300 Neutrophils % 69.0 Lymphocytes % 12.6 L Monocytes % 13.1 H Eosinophils % 3.7 Basophils % 1.3 Nucleated Red Blood Cells % 0.0 Immature Granulocytes # 0.020 Neutrophils # 4.1 Lymphocytes # 0.8 Monocytes # 0.8 Eosinophils # 0.2 Basophils # 0.1 Nucleated Red Blood Cells # 0.0 Sodium Level 132 L Potassium Level 3.9 Chloride Level 100 Carbon Dioxide Level 23 Anion Gap 9 Blood Urea Nitrogen 9 Creatinine 0.77 Est Glomerular Filtrat Rate mL/min Glucose Level 91 Calcium Level 8.8 Total Bilirubin 0.8 Direct Bilirubin 0.00 Indirect Bilirubin 0.8 Aspartate Amino Transf (AST/SGOT) 28 Alanine Aminotransferase (ALT/SGPT) 20 Alkaline Phosphatase 96 Total Protein 6.3 Albumin 3.4 Globulin 2.90 Albumin/Globulin Ratio 1.17 Stool Occult Blood NEGATIVE Medications Medication Current Medications IV Flush (NS 3 ml) 3 ml PER PROTOCOL IV ; Start 12/09/18 at 00:00 Ondansetron HCl (Zofran Inj) 4 mg Q6H PRN IV NAUSEA/VOMITING; Start 12/09/18 at 00:00 Acetaminophen (Tylenol Tab) 650 mg Q6H PRN PO .PAIN 1-3 OR TEMP Last administered on 12/12/18 20:02; Admin Dose 650 MG; Start 12/09/18 at 00:00 Zolpidem Tartrate (Ambien) 5 mg QHS PRN PO .INSOMNIA Last administered on 12/12/18 20:02; Admin Dose 5 MG; Start 12/09/18 at 00:00 Pantoprazole (Protonix Iv) 40 mg DAILY@06 IV Last administered on 12/13/18 05:47; Admin Dose 40 MG; Start 12/09/18 at 08:00 Levothyroxine Sodium (Synthroid) 175 mcg DAILY@06 PO Last administered on 12/13/18 05:47; Admin Dose 175 MCG; Start 12/10/18 at 06:00 Hydralazine HCl (Apresoline) 5 mg Q6H PRN IV SBP>180 OR DBP>100 Last administered on 12/12/18 12:03; Admin Dose 5 MG; Start 12/09/18 at 09:00 Diclofenac Sodium (Voltaren 1% Gel) 4 gm QID TP Last administered on 12/13/18 13:05; Admin Dose 4 GM; Start 12/10/18 at 09:30 Lisinopril (Zestril) 20 mg BID PO Last administered on 12/13/18at 09:06; Admin Dose 20 MG; Start 12/11/18 at 21:00 ANDRES MOFFETT M.D. Dec 13, 2018 14:21
[2018-12-13] MEDS: hydrALAzine 20 MG INJ IV PRN (15:34)
--- NOTE | 2018-12-13 19:54 | CONS ---
Assessment/Plan Assessment/Plan Hospital Course (Demo Recall) 1. Hyponatremia. His serum sodium today is correcting with current treatment. He is off IV fluids. I would continue current treatment. I will sign off at this point and see again on request. 2. Anemia. This is being worked up by Dr. Fall and Dr. Sutton for hematology. 3. Dementia. 4. Hypertension. He continues to have elevation spikes in blood pressure. We will continue current medication for now and adjust accordingly. I would consider adding amlodipine if his blood pressure continues to go up. Consultation Date/Type/Reason Admit Date/Time Dec 08, 2018 at 23:39 Initial Consult Date Type of Consult Nephrology Requesting Provider: SHADI FALL MD- Date/Time of Note DATE: 12/13/18 TIME: 19:50 24 HR Interval Summary Free Text/Dictation This patient is being seen in nephrologic follow-up. He is sleeping. He does rouse easily to verbal stimuli. He is making eye contact and is responsive. Constitutional: no complaints Exam/Review of Systems Exam Vitals Vital Signs Date Temp Pulse Resp B/P (MAP) Pulse Ox O2 O2 Flow FiO2 Time Delivery Rate 12/13/18 73 151/65 15:56 (93) 12/13/18 97.7 19 99 Room Air 15:13 Intake and Output 12/12/18 12/12/18 12/13/18 1515:00 23:00 07:00 IntakeIntake Total 1800 ml 420 ml OutputOutput Total 1300 ml 200 ml 150 ml BalanceBalance 500 ml 220 ml -150 ml Constitutional: alert, oriented, frail Psych: confusion Respiratory: clear to auscultation, normal air movement Cardiovascular: regular rate and rhythm Gastrointestinal: soft, non-tender Musculoskeletal: nl extremities to inspection Results Result Diagram: 12/13/18 0517 12/13/18 0517 Results 24hrs Laboratory Tests Test 12/13/18 05:17 12/13/18 13:36 White Blood Count 5.9 Red Blood Count 3.23 L Hemoglobin 9.5 L Hematocrit 27.2 L Mean Corpuscular Volume 84.2 Mean Corpuscular Hemoglobin 29.4 Mean Corpuscular Hemoglobin Concent 34.9 Red Cell Distribution Width 14.6 H Platelet Count 296 Mean Platelet Volume 8.6 Immature Granulocytes % 0.300 Neutrophils % 69.0 Lymphocytes % 12.6 L Monocytes % 13.1 H Eosinophils % 3.7 Basophils % 1.3 Nucleated Red Blood Cells % 0.0 Immature Granulocytes # 0.020 Neutrophils # 4.1 Lymphocytes # 0.8 Monocytes # 0.8 Eosinophils # 0.2 Basophils # 0.1 Nucleated Red Blood Cells # 0.0 Sodium Level 132 L Potassium Level 3.9 Chloride Level 100 Carbon Dioxide Level 23 Anion Gap 9 Blood Urea Nitrogen 9 Creatinine 0.77 Est Glomerular Filtrat Rate mL/min Glucose Level 91 Calcium Level 8.8 Total Bilirubin 0.8 Direct Bilirubin 0.00 Indirect Bilirubin 0.8 Aspartate Amino Transf (AST/SGOT) 28 Alanine Aminotransferase (ALT/SGPT) 20 Alkaline Phosphatase 96 Total Protein 6.3 Albumin 3.4 Globulin 2.90 Albumin/Globulin Ratio 1.17 Stool Occult Blood NEGATIVE Medications Medication Current Medications IV Flush (NS 3 ml) 3 ml PER PROTOCOL IV ; Start 12/09/18 at 00:00 Ondansetron HCl (Zofran Inj) 4 mg Q6H PRN IV NAUSEA/VOMITING; Start 12/09/18 at 00:00 Acetaminophen (Tylenol Tab) 650 mg Q6H PRN PO .PAIN 1-3 OR TEMP Last administered on 12/12/18 20:02; Admin Dose 650 MG; Start 12/09/18 at 00:00 Zolpidem Tartrate (Ambien) 5 mg QHS PRN PO .INSOMNIA Last administered on 12/12/18 20:02; Admin Dose 5 MG; Start 12/09/18 at 00:00 Levothyroxine Sodium (Synthroid) 175 mcg DAILY@06 PO Last administered on 12/13/18 05:47; Admin Dose 175 MCG; Start 12/10/18 at 06:00 Hydralazine HCl (Apresoline) 5 mg Q6H PRN IV SBP>180 OR DBP>100 Last administered on 12/13/18 15:34; Admin Dose 5 MG; Start 12/09/18 at 09:00 Diclofenac Sodium (Voltaren 1% Gel) 4 gm QID TP Last administered on 12/13/18 17:34; Admin Dose 4 GM; Start 12/10/18 at 09:30 Lisinopril (Zestril) 20 mg BID PO Last administered on 12/13/18 09:06; Admin Dose 20 MG; Start 12/11/18 at 21:00 Pantoprazole (Protonix Tab) 40 mg DAILY@06 PO ; Start 12/14/18 at 06:00 JEFF GREENWOOD MD Dec 13, 2018 19:54
[2018-12-13] MEDS: ZOLPIDEM 5 MG TAB PO PRN (21:32)
[2018-12-13] MEDS: ACETAMINOPHEN 325 MG TAB PO PRN (21:33)
[2018-12-14 02:04] VITALS: BP 159/69; PULSE 67; RESP 17
[2018-12-14] MEDS: PANTOPRAZOLE (EC) 40 MG TAB PO SCH (06:02)
[2018-12-14] MEDS: LEVOTHYROXINE 175 MCG TAB PO SCH (06:02)
[2018-12-14 08:03] VITALS: BP 178/80; PULSE 64; RESP 18
--- NOTE | 2018-12-14 08:21 | PN ---
DATE: 12/14/2018 SUBJECTIVE: The patient is without complaint. OBJECTIVE: VITAL SIGNS: Temperature 97.5, pulse 67, respirations 17, blood pressure 159/69, oxygen saturation 9 6% on room air. GENERAL: Well-developed, well-nourished male in no acute distress, lying in bed. LUNGS: Clear to auscultation bilaterally. HEART: Regular rate and rhythm. ABDOMEN: Soft, nontender, normoactive bowel sounds. EXTREMITIES: No cyanosis, clubbing or edema. NEUROLOGIC: Patient is alert and oriented x2, otherwise nonfocal. LABORATORY DATA: Sodium 130, potassium 4.0, chloride 99, bicarbonate 22, BUN of 13, creatinine 0.84, glucose of 88, calcium 8.8, hemoglobin of 9.9, hematocrit 29.0, white blood cell count 5.7, platelet s 300. ASSESSMENT AND PLAN 1. Hyponatremia worse today going down to 130. The patient has been off IV fluids. We will continu e to monitor, but will not resume IV fluids at this point as it contributes to some of his blood pres sure lability likely. 2. Anemia, improved but etiology still unclear. Continue to work up the issue and if the patient wi ll need a bone marrow biopsy, he can get this as an outpatient. No need for transfusion at this poin t and occult blood has only been done x1. We will continue to evaluate further. 3. Hypertension, improved but continues to remain labile. We will continue with current medications and adjust as necessary. 4. Dementia, stable, but persistent. Continue to monitor, but hold off on meds. 5. Hypothyroidism, stable. Continue with medications. Dictated By: SHADI ISSA MD, SR/DAY Conf#: [id number] DID#: [id number]
[2018-12-14] MEDS: DICLOFENAC SODIUM 1% GEL 100 GM TUBE TP SCH ×4 (08:30→22:21)
[2018-12-14] MEDS: LISINOPRIL 20 MG TAB PO SCH ×2 (08:30→22:21)
--- NOTE | 2018-12-14 13:51 | CONS ---
Assessment/Plan Assessment/Plan Hospital Course (Demo Recall) 88 yo with Alzheimer's dementia, osteoarthritis, hypertension, hyperthyroidism #anemia -normal iron studies -B12 borderline, now on 1000 mcg daily -folate is also borderline, start Folic acid 1 mg daily -SPEP negative making monoclonal gammopathy unlikely. -LDH is slightly elevated, do not believe this is TTP or overt hemolysis, as typically plt is low and LDH is very significantly elevated in the 1000s, haptoglobin is detectable as well -this may be medications related or given his age, underlying MDS (this can only be diagnosed on bone marrow biopsy) -hgb has remained stable, if there is a drop in Hgb or any immature forms are seen in differential/ or if thrombocytopenia develops consider bone marrow biopsy HERBERT -however at this point given that HGB is stable continue to monitor , no need for transfusion thank you Dr Fall for allowing me to participate in the care of this ez gentleman Consultation Date/Type/Reason Admit Date/Time Dec 08, 2018 at 23:39 Initial Consult Date Requesting Provider: SHADI FALL MD- Date/Time of Note DATE: 12/14/18 TIME: 13:47 24 HR Interval Summary Free Text/Dictation PT FEELS WELL TODAY NO COMPLAINTS Exam/Review of Systems Exam Vitals Vital Signs Date Temp Pulse Resp B/P (MAP) Pulse Ox O2 O2 Flow FiO2 Time Delivery Rate 12/14/18 98.2 64 18 178/80 93 08:03 (112) 12/13/18 Room Air 21:30 Intake and Output 12/13/18 12/13/18 12/14/18 1515:00 23:00 07:00 IntakeIntake Total 960 ml 240 ml OutputOutput Total 550 ml 200 ml 500 ml BalanceBalance 410 ml 40 ml -500 ml Constitutional: alert, oriented, well developed Psych: no complaints, nl mood/affect Head: normocephalic, atraumatic Eyes: nl conjunctiva, EOMI, nl lids, nl sclera, PERRL ENMT: nl external ears & nose, nl lips & teeth, nl nasal mucosa & septum Musculoskeletal: nl extremities to inspection, nl gait and stance Extremities: normal pulses Results Result Diagram: 12/14/18 0532 12/14/18 0532 Results 24hrs Laboratory Tests Test 12/14/18 05:32 White Blood Count 5.7 Red Blood Count 3.39 L Hemoglobin 9.9 L Hematocrit 29.0 L Mean Corpuscular Volume 85.5 Mean Corpuscular Hemoglobin 29.2 Mean Corpuscular Hemoglobin Concent 34.1 Red Cell Distribution Width 14.6 H Platelet Count 300 Mean Platelet Volume 8.5 Immature Granulocytes % 0.400 Neutrophils % 61.6 Lymphocytes % 18.4 Monocytes % 13.4 H Eosinophils % 4.8 Basophils % 1.4 Nucleated Red Blood Cells % 0.0 Immature Granulocytes # 0.020 Neutrophils # 3.5 Lymphocytes # 1.0 Monocytes # 0.8 Eosinophils # 0.3 Basophils # 0.1 Nucleated Red Blood Cells # 0.0 Sodium Level 130 L Potassium Level 4.0 Chloride Level 99 Carbon Dioxide Level 22 Anion Gap 9 Blood Urea Nitrogen 13 Creatinine 0.84 Est Glomerular Filtrat Rate mL/min Glucose Level 88 Calcium Level 8.8 Medications Medication Current Medications IV Flush (NS 3 ml) 3 ml PER PROTOCOL IV ; Start 12/09/18 at 00:00 Ondansetron HCl (Zofran Inj) 4 mg Q6H PRN IV NAUSEA/VOMITING; Start 12/09/18 at 00:00 Acetaminophen (Tylenol Tab) 650 mg Q6H PRN PO .PAIN 1-3 OR TEMP Last administered on 12/13/18 21:33; Admin Dose 650 MG; Start 12/09/18 at 00:00 Zolpidem Tartrate (Ambien) 5 mg QHS PRN PO .INSOMNIA Last administered on 12/13/18 21:32; Admin Dose 5 MG; Start 12/09/18 at 00:00 Levothyroxine Sodium (Synthroid) 175 mcg DAILY@06 PO Last administered on 12/14/18 06:02; Admin Dose 175 MCG; Start 12/10/18 at 06:00 Hydralazine HCl (Apresoline) 5 mg Q6H PRN IV SBP>180 OR DBP>100 Last administered on 12/13/18 15:34; Admin Dose 5 MG; Start 12/09/18 at 09:00 Diclofenac Sodium (Voltaren 1% Gel) 4 gm QID TP Last administered on 12/14/18 12:51; Admin Dose 4 GM; Start 12/10/18 at 09:30 Lisinopril (Zestril) 20 mg BID PO Last administered on 7/10/19at 08:30; Admin Dose 20 MG; Start 12/11/18 at 21:00 Pantoprazole (Protonix Tab) 40 mg DAILY@06 PO Last administered on 12/14/18at 06:02; Admin Dose 40 MG; Start 12/14/18 at 06:00 MINDY MEAD Dec 14, 2018 13:51
[2018-12-14] MEDS: FOLIC ACID 1 MG TAB PO SCH (15:11)
[2018-12-14 15:16] VITALS: BP 179/79; PULSE 69; RESP 19
[2018-12-14 19:57] VITALS: BP 136/63; PULSE 70; RESP 18
[2018-12-15 01:22] VITALS: BP 172/74; PULSE 61; RESP 18
[2018-12-15] MEDS: ACETAMINOPHEN 325 MG TAB PO PRN ×2 (03:10→09:19)
[2018-12-15] MEDS: LEVOTHYROXINE 175 MCG TAB PO SCH (05:43)
[2018-12-15] MEDS: PANTOPRAZOLE (EC) 40 MG TAB PO SCH (05:43)
[2018-12-15 07:29] VITALS: BP 145/67; PULSE 80; RESP 18
[2018-12-15] MEDS: FOLIC ACID 1 MG TAB PO SCH (08:08)
[2018-12-15] MEDS: LISINOPRIL 20 MG TAB PO SCH ×2 (08:08→20:39)
[2018-12-15] MEDS: SOD CHLORIDE 0.9% 1,000 ML IV SCH ×2 (08:11→17:07)
[2018-12-15] MEDS: DICLOFENAC SODIUM 1% GEL 100 GM TUBE TP SCH ×4 (08:11→20:39)
--- NOTE | 2018-12-15 08:57 | PN ---
DATE: 12/15/2018 SUBJECTIVE: The patient is feeling okay, but complains of knee pain, still feels very weak. OBJECTIVE: VITAL SIGNS: Temperature 97.5, pulse of 80, respirations 18, blood pressure 145/67, oxygen saturatio n 95% on room air. GENERAL: Well-developed, well-nourished male in no acute distress, lying in bed. LUNGS: Clear to auscultation bilaterally. HEART: Regular rate and rhythm. ABDOMEN: Soft, nontender. EXTREMITIES: No cyanosis, clubbing or edema. NEUROLOGIC: Patient is alert and oriented x2, otherwise nonfocal. LABORATORY DATA: Sodium 128, potassium 4.0, chloride 95, carbon dioxide 23, BUN of 14, creatinine 0. 77, glucose of 85, hematocrit 28.2, hemoglobin of 9.9, white blood cell count 5.5, platelets of 269. ASSESSMENT AND PLAN 1. Hyponatremia. Worse as patient has been off of IV fluids. Will resume normal saline at 100 mL p er hour and follow the sodium. This is contributing to patient's overall weakness. 2. Anemia, relatively stable. Continue to monitor, but no need for transfusions, still unclear etio logy as to why the patient is anemic. The patient will likely benefit from outpatient bone marrow bi opsy. 3. Debility. Patient remains weak and physical therapy has evaluated the patient, but needs further time. The patient may benefit from shelter versus acute rehab for further rehabilitation as the patient has weakness and lives with his , who has arthritis. 3. Hypertension, improved. We will continue with medications and p.r.n. hydralazine. 4. Hypothyroidism, stable. Continue with meds. 5. Dementia, stable, but limits the patient's participation. Dictated By: SHADI ISSA MD SR/NTS Conf#: [id number] DID#: [id number] CC: TEODORO CARBALLO MD; JEFF GREENWOOD MD;*End*
[2018-12-15] MEDS ORDERED: MAGNESIUM HYDROXIDE 30ML CUP PO PRN (10:30)
[2018-12-15] MEDS: traMADol 50 MG TAB PO PRN (10:59)
--- NOTE | 2018-12-15 11:58 | CONS ---
Assessment/Plan Assessment/Plan Hospital Course (Demo Recall) 88 yo with Alzheimer's dementia, osteoarthritis, hypertension, hyperthyroidism #anemia -normal iron studies -B12 borderline, now on 1000 mcg daily supplementation -folate is also borderline, started Folic acid 1 mg daily -SPEP negative making monoclonal gammopathy unlikely. -LDH is slightly elevated, do not believe this is TTP or overt hemolysis, as typically plt is low and LDH is very significantly elevated in the 1000s, haptoglobin is detectable as well -this may be medication related or given his age, underlying MDS (this can only be diagnosed on bone marrow biopsy) -hgb has remained stable, if there is a drop in Hgb or any immature forms are seen in differential/ or if thrombocytopenia develops consider bone marrow biopsy HERBERT -however at this point given that HGB is stable continue to monitor , no need for transfusion -IF PT IS EXPECTED TO REMAIN IN HOSPITAL, CAN DO BONE MARROW BIOPSY WHILE HERE TO MAKE SURE WE RULE OUT ANY MARROW PATHOLOGY Thank you Dr Fall, for allowing me to participate in the care of this pleasant gentleman Consultation Date/Type/Reason Admit Date/Time Dec 08, 2018 at 23:39 Initial Consult Date Requesting Provider: SHADI FALL MD- Date/Time of Note DATE: 12/15/18 TIME: 11:56 24 HR Interval Summary Free Text/Dictation no complaints today Exam/Review of Systems Exam Vitals Vital Signs Date Temp Pulse Resp B/P (MAP) Pulse Ox O2 O2 Flow FiO2 Time Delivery Rate 12/15/18 97.5 80 18 145/67 95 Room Air 07:29 (93) Intake and Output 12/14/18 12/14/18 12/15/18 1515:00 23:00 07:00 IntakeIntake Total 840 ml 1140 ml 480 ml OutputOutput Total 200 ml 200 ml 610 ml BalanceBalance 640 ml 940 ml -130 ml Constitutional: alert, oriented, well developed Psych: no complaints, nl mood/affect Head: normocephalic, atraumatic Respiratory: normal air movement Cardiovascular: nl pulses Musculoskeletal: nl extremities to inspection, nl gait and stance Results Result Diagram: 12/15/1824 12/15/18 0524 Results 24hrs Laboratory Tests Test 12/15/18 05:24 White Blood Count 5.5 Red Blood Count 3.34 L Hemoglobin 9.9 L Hematocrit 28.2 L Mean Corpuscular Volume 84.4 Mean Corpuscular Hemoglobin 29.6 Mean Corpuscular Hemoglobin Concent 35.1 Red Cell Distribution Width 14.0 Platelet Count 269 Mean Platelet Volume 8.4 Immature Granulocytes % 0.400 Neutrophils % 61.5 Lymphocytes % 18.7 Monocytes % 13.4 H Eosinophils % 4.4 Basophils % 1.6 Nucleated Red Blood Cells % 0.0 Immature Granulocytes # 0.020 Neutrophils # 3.4 Lymphocytes # 1.0 Monocytes # 0.7 Eosinophils # 0.2 Basophils # 0.1 Nucleated Red Blood Cells # 0.0 Sodium Level 128 L Potassium Level 4.0 Chloride Level 95 L Carbon Dioxide Level 23 Anion Gap 10 Blood Urea Nitrogen 14 Creatinine 0.77 Est Glomerular Filtrat Rate mL/min Glucose Level 85 Calcium Level 8.6 Medications Medication Current Medications IV Flush (NS 3 ml) 3 ml PER PROTOCOL IV ; Start 12/09/18 at 00:00 Ondansetron HCl (Zofran Inj) 4 mg Q6H PRN IV NAUSEA/VOMITING; Start 12/09/18 at 00:00 Acetaminophen (Tylenol Tab) 650 mg Q6H PRN PO .PAIN 1-3 OR TEMP Last administered on 12/15/18 09:19; Admin Dose 650 MG; Start 12/09/18 at 00:00 Zolpidem Tartrate (Ambien) 5 mg QHS PRN PO .INSOMNIA Last administered on 12/13/18 21:32; Admin Dose 5 MG; Start 12/09/18 at 00:00 Levothyroxine Sodium (Synthroid) 175 mcg DAILY@06 PO Last administered on 12/15/18at 05:43; Admin Dose 175 MCG; Start 12/10/18 at 06:00 Hydralazine HCl (Apresoline) 5 mg Q6H PRN IV SBP>180 OR DBP>100 Last administered on 12/13/18 15:34; Admin Dose 5 MG; Start 12/09/18 at 09:00 Diclofenac Sodium (Voltaren 1% Gel) 4 gm QID TP Last administered on 12/15/18 08:11; Admin Dose 4 GM; Start 12/10/18 at 09:30 Lisinopril (Zestril) 20 mg BID PO Last administered on 12/15/18at 08:08; Admin Dose 20 MG; Start 12/11/18 at 21:00 Pantoprazole (Protonix Tab) 40 mg DAILY@06 PO Last administered on 12/15/18at 05:43; Admin Dose 40 MG; Start 12/14/18 at 06:00 Folic Acid (Folic Acid) 1 mg DAILY PO Last administered on 12/15/18at 08:08; Admin Dose 1 MG; Start 12/14/18 at 14:00 Sodium Chloride 1,000 ml @ 100 mls/hr Q10H IV Last administered on 12/15/18at 08:11; Admin Dose 100 MLS/HR; Start 12/15/18 at 08:00 Tramadol HCl (Ultram) 50 mg Q6H PRN PO MODERATE PAIN LEVEL 4-6 Last administered on 12/15/18at 10:59; Admin Dose 50 MG; Start 12/15/18 at 10:30 Magnesium Hydroxide (Milk Of Mag) 30 ml BID PRN PO CONSTIPATION; Start 12/15/18 at 10:30 Collagenase (Santyl) 1 applic DAILY TOP ; Start 12/15/18 at 14:00 MINDY MEAD Dec 15, 2018 11:58
[2018-12-15] MEDS: COLLAGENASE 5 GM (UD JAR) TOP SCH (13:39)
[2018-12-15 14:13] VITALS: BP 154/70; PULSE 61; RESP 18
[2018-12-15 20:27] VITALS: BP 138/63; PULSE 67; RESP 19
[2018-12-16 02:26] VITALS: BP 153/74; PULSE 61; RESP 18
[2018-12-16] MEDS: SOD CHLORIDE 0.9% 1,000 ML IV SCH ×3 (03:05→22:55)
[2018-12-16] MEDS: PANTOPRAZOLE (EC) 40 MG TAB PO SCH (05:31)
[2018-12-16] MEDS: LEVOTHYROXINE 175 MCG TAB PO SCH (05:31)
[2018-12-16 07:34] VITALS: BP 169/77; PULSE 66; RESP 19
[2018-12-16] MEDS: FOLIC ACID 1 MG TAB PO SCH (08:36)
[2018-12-16] MEDS: LISINOPRIL 20 MG TAB PO SCH ×2 (08:36→21:21)
[2018-12-16] MEDS: DICLOFENAC SODIUM 1% GEL 100 GM TUBE TP SCH ×4 (08:37→21:21)
[2018-12-16] MEDS: COLLAGENASE 5 GM (UD JAR) TOP SCH (08:37)
--- NOTE | 2018-12-16 10:37 | PN ---
DATE: 12/16/2018 SUBJECTIVE: The patient without complaint except for some knee pain and feels weak. OBJECTIVE: VITAL SIGNS: Temperature 98.2, blood pressure 169/77, pulse 66, respirations 19, oxygen saturation 9 5% on room air. GENERAL: Well-developed, well-nourished male in no acute distress, lying in bed. LUNGS: Clear to auscultation bilaterally. HEART: Regular rate and rhythm. ABDOMEN: Soft, nontender. EXTREMITIES: No cyanosis, clubbing or edema. 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 NEUROLOGIC: The patient is alert and oriented x2, otherwise nonfocal. LABORATORY DATA: White blood cell count 6.2, hemoglobin 9.6, hematocrit 27.7, platelets of 271. Sod ium 128, potassium 4.0, chloride 97, BUN of 12, creatinine 0.78, glucose of 86, carbon dioxide of 23, calcium 8.4. ASSESSMENT AND PLAN 1. Hyponatremia persists at 128. We will continue with intravenous fluids and continue to monitor. 2. Anemia, slightly down with hydration, but otherwise stable. The patient probably should get a nathalia ne marrow biopsy if he remains in the hospital and we will determine this later today to see if he qu alifies for acute rehabilitation versus fdc. 3. Debility. The patient remains weak and would benefit from more aggressive physical and occupation al therapy. Will ask for acute rehabilitation consult today to see if he qualifies. Otherwise, the patient will need to go to a fdc facility for further rehabilitation and care. 4. Hypertension, stable. We will continue with current medications and p.r.n. hydralazine. 5. Hypothyroidism, stable. Continue to give medications. 6. Discharge planning. The patient will require further physical therapy and rehabilitation. We wi ll see if the patient qualifies for acute rehabilitation versus fdc facility and will hav e case management, evaluate for this today. Dictated By: SHADI ISSA MD SR/NTS Conf#: [id number] DID#: [id number] CC: TEODORO CARBALLO MD;*EndCC*
[2018-12-16 14:14] VITALS: BP 178/86; PULSE 65; RESP 19
--- NOTE | 2018-12-16 16:16 | CONS ---
Assessment/Plan Assessment/Plan Hospital Course (Demo Recall) 88 yo with Alzheimer's dementia, osteoarthritis, hypertension, hyperthyroidism #anemia -normal iron studies -B12 borderline, now on 1000 mcg daily supplementation -folate is also borderline, started Folic acid 1 mg daily -SPEP negative making monoclonal gammopathy unlikely. -LDH is slightly elevated, do not believe this is TTP or overt hemolysis, as typically plt is low and LDH is very significantly elevated in the 1000s, haptoglobin is detectable as well -this may be medication related or given his age, underlying MDS (this can only be diagnosed on bone marrow biopsy) -hgb has remained stable, if there is a drop in Hgb or any immature forms are seen in differential/ or if thrombocytopenia develops consider bone marrow biopsy HERBERT -however at this point given that HGB is stable continue to monitor , no need for transfusion - I spoke to his sone about above. He understands pt is anemic but counts stable and safe. I discussed possibility of bone marrow biopsy but at this point he feels that the family would not want to be that aggressive but would think about it Thank you Dr Fall, for allowing me to participate in the care of this pleasant gentleman Consultation Date/Type/Reason Admit Date/Time Dec 08, 2018 at 23:39 Initial Consult Date Requesting Provider: SHADI FALL MD- Date/Time of Note DATE: 12/16/18 TIME: 16:14 24 HR Interval Summary Free Text/Dictation resting son at bedside Exam/Review of Systems Exam Vitals Vital Signs Date Temp Pulse Resp B/P (MAP) Pulse Ox O2 O2 Flow FiO2 Time Delivery Rate 12/16/18 97.8 65 19 178/86 95 Room Air 14:14 (116) Intake and Output 12/15/18 12/15/18 12/16/18 1515:00 23:00 07:00 IntakeIntake Total 120 ml 1580 ml 1440 ml OutputOutput Total 160 ml 375 ml 200 ml BalanceBalance -40 ml 1205 ml 1240 ml Constitutional: frail Musculoskeletal: nl extremities to inspection, nl gait and stance Results Result Diagram: 12/16/18 0525 12/16/18 0525 Results 24hrs Laboratory Tests Test 12/16/18 05:25 White Blood Count 6.2 Red Blood Count 3.26 L Hemoglobin 9.6 L Hematocrit 27.7 L Mean Corpuscular Volume 85.0 Mean Corpuscular Hemoglobin 29.4 Mean Corpuscular Hemoglobin Concent 34.7 Red Cell Distribution Width 14.1 Platelet Count 271 Mean Platelet Volume 8.5 Immature Granulocytes % 0.500 H Neutrophils % 68.3 Lymphocytes % 14.0 L Monocytes % 12.7 H Eosinophils % 3.4 Basophils % 1.1 Nucleated Red Blood Cells % 0.0 Immature Granulocytes # 0.030 Neutrophils # 4.3 Lymphocytes # 0.9 Monocytes # 0.8 Eosinophils # 0.2 Basophils # 0.1 Nucleated Red Blood Cells # 0.0 Sodium Level 128 L Potassium Level 4.0 Chloride Level 97 Carbon Dioxide Level 23 Anion Gap 8 Blood Urea Nitrogen 12 Creatinine 0.78 Est Glomerular Filtrat Rate mL/min Glucose Level 86 Calcium Level 8.4 Medications Medication Current Medications IV Flush (NS 3 ml) 3 ml PER PROTOCOL IV ; Start 12/09/18 at 00:00 Ondansetron HCl (Zofran Inj) 4 mg Q6H PRN IV NAUSEA/VOMITING; Start 12/09/18 at 00:00 Acetaminophen (Tylenol Tab) 650 mg Q6H PRN PO .PAIN 1-3 OR TEMP Last administered on 12/15/18at 09:19; Admin Dose 650 MG; Start 12/09/18 at 00:00 Zolpidem Tartrate (Ambien) 5 mg QHS PRN PO .INSOMNIA Last administered on 12/13/18 21:32; Admin Dose 5 MG; Start 12/09/18 at 00:00 Levothyroxine Sodium (Synthroid) 175 mcg DAILY@06 PO Last administered on 05:31; Admin Dose 175 MCG; Start 12/10/18 at 06:00 Hydralazine HCl (Apresoline) 5 mg Q6H PRN IV SBP>180 OR DBP>100 Last administered on 12/13/18 15:34; Admin Dose 5 MG; Start 12/09/18 at 09:00 Diclofenac Sodium (Voltaren 1% Gel) 4 gm QID TP Last administered on 12/16/18at 13:50; Admin Dose 4 GM; Start 12/10/18 at 09:30 Lisinopril (Zestril) 20 mg BID PO Last administered on 12/16/18 08:36; Admin Dose 20 MG; Start 12/11/18 at 21:00 Pantoprazole (Protonix Tab) 40 mg DAILY@06 PO Last administered on 12/16/18 05:31; Admin Dose 40 MG; Start 12/14/18 at 06:00 Folic Acid (Folic Acid) 1 mg DAILY PO Last administered on 12/16/18at 08:36; Admin Dose 1 MG; Start 12/14/18 at 14:00 Sodium Chloride 1,000 ml @ 100 mls/hr Q10H IV Last administered on 12/16/18 13:50; Admin Dose 100 MLS/HR; Start 12/15/18 at 08:00 Tramadol HCl (Ultram) 50 mg Q6H PRN PO MODERATE PAIN LEVEL 4-6 Last administered on 12/15/18at 10:59; Admin Dose 50 MG; Start 12/15/18 at 10:30 Magnesium Hydroxide (Milk Of Mag) 30 ml BID PRN PO CONSTIPATION; Start 12/15/18 at 10:30 Collagenase (Santyl) 1 applic DAILY TOP Last administered on 12/16/18at 08:37; Admin Dose 1 APPLIC; Start 12/15/18 at 14:00 MINDY MEAD Dec 16, 2018 16:16
[2018-12-16 20:19] VITALS: BP 169/70; PULSE 65; RESP 18
[2018-12-17 02:05] VITALS: BP 166/76; PULSE 65; RESP 20
[2018-12-17] MEDS: SOD CHLORIDE 0.9% 1,000 ML IV SCH ×2 (05:35→17:10)
[2018-12-17] MEDS: LEVOTHYROXINE 175 MCG TAB PO SCH (05:35)
[2018-12-17] MEDS: PANTOPRAZOLE (EC) 40 MG TAB PO SCH (05:35)
[2018-12-17 07:41] VITALS: BP 161/71; PULSE 60; RESP 18
[2018-12-17] MEDS: DICLOFENAC SODIUM 1% GEL 100 GM TUBE TP SCH ×4 (08:38→20:35)
[2018-12-17] MEDS: COLLAGENASE 5 GM (UD JAR) TOP SCH (08:38)
[2018-12-17] MEDS: FOLIC ACID 1 MG TAB PO SCH (08:38)
[2018-12-17] MEDS: LISINOPRIL 20 MG TAB PO SCH ×2 (08:39→20:35)
--- NOTE | 2018-12-17 13:28 | PN ---
Date/Time of Note Date/Time of Note DATE: 12/17/18 TIME: 13:20 Subjective weak, no pain Objective Vitals Vital Signs Date Temp Pulse Resp B/P (MAP) Pulse Ox O2 O2 Flow FiO2 Time Delivery Rate 12/17/18 98.0 60 18 161/71 95 Room Air 07:41 (101) Intake and Output 12/16/18 12/16/18 12/17/18 1515:00 23:00 07:00 IntakeIntake Total 925 ml 240 ml 1235 ml BalanceBalance 925 ml 240 ml 1235 ml a&o x2, rr, cta, nt/ nd/ dec bs/ no mass, no c/c/e Results Result Diagram: 12/17/1852012/17/18519 Medications Medications Current Medications IV Flush (NS 3 ml) 3 ml PER PROTOCOL IV ; Start 12/09/18 at 00:00 Ondansetron HCl (Zofran Inj) 4 mg Q6H PRN IV NAUSEA/VOMITING; Start 12/09/18 at 00:00 Acetaminophen (Tylenol Tab) 650 mg Q6H PRN PO .PAIN 1-3 OR TEMP Last administered on 12/15/18 09:19; Admin Dose 650 MG; Start 12/09/18 at 00:00 Zolpidem Tartrate (Ambien) 5 mg QHS PRN PO .INSOMNIA Last administered on 12/13/18 21:32; Admin Dose 5 MG; Start 12/09/18 at 00:00 Levothyroxine Sodium (Synthroid) 175 mcg DAILY@06 PO Last administered on 12/17/18 05:35; Admin Dose 175 MCG; Start 12/10/18 at 06:00 Hydralazine HCl (Apresoline) 5 mg Q6H PRN IV SBP>180 OR DBP>100 Last administered on 12/13/18 15:34; Admin Dose 5 MG; Start 12/09/18 at 09:00 Diclofenac Sodium (Voltaren 1% Gel) 4 gm QID TP Last administered on 12/17/18 08:38; Admin Dose 4 GM; Start 12/10/18 at 09:30 Lisinopril (Zestril) 20 mg BID PO Last administered on 12/17/18 08:39; Admin Dose 20 MG; Start 12/11/18 at 21:00 Pantoprazole (Protonix Tab) 40 mg DAILY@06 PO Last administered on 12/17/18 05:35; Admin Dose 40 MG; Start 12/14/18 at 06:00 Folic Acid (Folic Acid) 1 mg DAILY PO Last administered on 12/17/18at 08:38; A dmin Dose 1 MG; Start 12/14/18 at 14:00 Sodium Chloride 1,000 ml @ 100 mls/hr Q10H IV Last administered on 12/17/18 05:35; Admin Dose 100 MLS/HR; Start 12/15/18 at 08:00 Tramadol HCl (Ultram) 50 mg Q6H PRN PO MODERATE PAIN LEVEL 4-6 Last administered on 12/15/18at 10:59; Admin Dose 50 MG; Start 12/15/18 at 10:30 Magnesium Hydroxide (Milk Of Mag) 30 ml BID PRN PO CONSTIPATION; Start 12/15/18 at 10:30 Collagenase (Santyl) 1 applic DAILY TOP Last administered on 12/17/18at 08:38; Admin Dose 1 APPLIC; Start 12/15/18 at 14:00 VTE Prophylaxis Risk score (from Nsg)>0 risk: 4 SCD applied (from Nsg): Yes Lines/Catheters IV Catheter Type: Saline Lock Central line still needed: No Alegria in Place: No Assessment/Plan Assessment/Plan 1. low Na 2. age related debility--weak musc strength & endurance, freq falls, 3. anemia--fam chose no bone marrow bx 4. htn 5. hypo t4 ---free fluid restriction & ivf supp ---acute rehab consult siobhan ---blood transfusion & blood loss prevention only ---add amlodipine 5mg qd ---cont all supportive cares RANDOLPH BERGERON MD Dec 17, 2018 13:28
[2018-12-17 13:49] VITALS: BP 154/72; PULSE 60; RESP 19
[2018-12-17] MEDS: AMLODIPINE 5 MG TAB PO SCH (14:04)
[2018-12-17 20:12] VITALS: BP 160/74; PULSE 64; RESP 20
[2018-12-17 20:33] VITALS: BP 160/75; PULSE 69; RESP 20
[2018-12-17] MEDS: traMADol 50 MG TAB PO PRN (22:33)
[2018-12-18 01:31] VITALS: BP 148/68; PULSE 66; RESP 18
[2018-12-18] MEDS: PANTOPRAZOLE (EC) 40 MG TAB PO SCH (05:29)
[2018-12-18] MEDS: LEVOTHYROXINE 175 MCG TAB PO SCH (05:29)
[2018-12-18 08:19] VITALS: BP 168/75; PULSE 69; RESP 18
[2018-12-18] MEDS: FOLIC ACID 1 MG TAB PO SCH (08:54)
[2018-12-18] MEDS: LISINOPRIL 20 MG TAB PO SCH ×2 (08:55→21:01)
[2018-12-18] MEDS: AMLODIPINE 5 MG TAB PO SCH (08:56)
[2018-12-18] MEDS: COLLAGENASE 5 GM (UD JAR) TOP SCH (08:56)
[2018-12-18] MEDS: DICLOFENAC SODIUM 1% GEL 100 GM TUBE TP SCH ×4 (08:56→21:01)
[2018-12-18 11:22] VITALS: BP 138/65; PULSE 66
--- NOTE | 2018-12-18 11:28 | PN ---
Date/Time of Note Date/Time of Note DATE: 12/18/18 TIME: 11:28 Subjective not much appetite, no c/o pain Objective Vitals Vital Signs Date Temp Pulse Resp B/P (MAP) Pulse Ox O2 O2 Flow FiO2 Time Delivery Rate 12/18/18 97.8 69 18 168/75 95 Room Air 08:19 (106) Intake and Output 12/17/18 12/17/18 12/18/18 1515:00 23:00 07:00 IntakeIntake Total 240 ml 475 ml 800 ml OutputOutput Total 500 ml 800 ml 600 ml BalanceBalance -260 ml -325 ml 200 ml in bed, rr, cta, no c/c/e Results Result Diagram: 12/18/18 0534 12/18/1834 Medications Medications Current Medications IV Flush (NS 3 ml) 3 ml PER PROTOCOL IV ; Start 12/09/18 at 00:00 Ondansetron HCl (Zofran Inj) 4 mg Q6H PRN IV NAUSEA/VOMITING; Start 12/09/18 at 00:00 Acetaminophen (Tylenol Tab) 650 mg Q6H PRN PO .PAIN 1-3 OR TEMP Last a dministered on 12/15/18at 09:19; Admin Dose 650 MG; Start 12/09/18 at 00:00 Zolpidem Tartrate (Ambien) 5 mg QHS PRN PO .INSOMNIA Last administered on 12/13/18 21:32; Admin Dose 5 MG; Start 12/09/18 at 00:00 Levothyroxine Sodium (Synthroid) 175 mcg DAILY@06 PO Last administered on 12/18/18 05:29; Admin Dose 175 MCG; Start 12/10/18 at 06:00 Hydralazine HCl (Apresoline) 5 mg Q6H PRN IV SBP>180 OR DBP>100 Last administered on 12/13/18 15:34; Admin Dose 5 MG; Start 12/09/18 at 09:00 Diclofenac Sodium (Voltaren 1% Gel) 4 gm QID TP Last administered on 12/18/18 08:56; Admin Dose 4 GM; Start 12/10/18 at 09:30 Lisinopril (Zestril) 20 mg BID PO Last administered on 12/18/18 08:55; Admin Dose 20 MG; Start 12/11/18 at 21:00 Pantoprazole (Protonix Tab) 40 mg DAILY@06 PO Last administered on 12/18/18 05:29; Admin Dose 40 MG; Start 12/14/18 at 06:00 Folic Acid (Folic Acid) 1 mg DAILY PO Last administered on 12/18/18 08:54; Admin Dose 1 MG; Start 12/14/18 at 14:00 Tramadol HCl (Ultram) 50 mg Q6H PRN PO MODERATE PAIN LEVEL 4-6 Last administered on 12/17/18 22:33; Admin Dose 50 MG; Start 12/15/18 at 10:30 Magnesium Hydroxide (Milk Of Mag) 30 ml BID PRN PO CONSTIPATION; Start 12/15/18 at 10:30 Collagenase (Santyl) 1 applic DAILY TOP Last administered on 12/18/18 08:56; Admin Dose 1 APPLIC; Start 12/15/18 at 14:00 Amlodipine Besylate (Norvasc) 5 mg DAILY PO Last administered on 12/18/18 08:56; Admin Dose 5 MG; Start 12/17/18 at 13:30 VTE Prophylaxis Risk score (from Nsg)>0 risk: 6 SCD applied (from Ns): Yes Lines/Catheters IV Catheter Type: Saline Lock Central line still needed: No Alegria in Place: No Assessment/Plan Assessment/Plan 1. low Na--ivf stopped, # seems going down again 2. anemia--hgb holding around 9.2-9.5, no obvious blood loss seen 3. htn--better w/ ca channel elis 4. hypothyroid--ok 5. age related musc weak/ balance-gait ds--seems to coop fully with PT ---cont free fluid limit ---recheck Na @1900 today ---fall prevention ---encourage cont PT exercise ---awaiting acute rehab eval & transfer ---while MD Eufemia is away on leave, dr Landry will follow pt as pmd RANDOLPH LANDRY MD Dec 18, 2018 11:28
[2018-12-18] MEDS: CALCIUM CARBONATE 500 MG CHEW TAB PO SCH (13:42)
[2018-12-18 16:08] VITALS: BP 148/75; PULSE 75; RESP 19
[2018-12-18 19:55] VITALS: BP 168/98; PULSE 81; RESP 18
[2018-12-18] MEDS: traMADol 50 MG TAB PO PRN (21:03)
[2018-12-19 01:32] VITALS: BP 168/74; PULSE 69; RESP 16
[2018-12-19] MEDS: LEVOTHYROXINE 175 MCG TAB PO SCH (06:00)
[2018-12-19] MEDS: PANTOPRAZOLE (EC) 40 MG TAB PO SCH (06:00)
[2018-12-19 08:12] VITALS: BP 149/72; PULSE 71; RESP 17
[2018-12-19] MEDS: LISINOPRIL 20 MG TAB PO SCH ×2 (08:19→21:15)
[2018-12-19] MEDS: CALCIUM CARBONATE 500 MG CHEW TAB PO SCH (08:19)
[2018-12-19] MEDS: FOLIC ACID 1 MG TAB PO SCH (08:19)
[2018-12-19] MEDS: COLLAGENASE 5 GM (UD JAR) TOP SCH (08:19)
[2018-12-19] MEDS: DICLOFENAC SODIUM 1% GEL 100 GM TUBE TP SCH ×4 (08:20→21:14)
[2018-12-19] MEDS: AMLODIPINE 5 MG TAB PO SCH (08:20)
[2018-12-19] MEDS: SOD CHLORIDE 0.9% 1,000 ML IV SCH (12:18)
--- NOTE | 2018-12-19 14:28 | CONS ---
Assessment/Plan Assessment/Plan Hospital Course (Demo Recall) 88 yo with Alzheimer's dementia, osteoarthritis, hypertension, hyperthyroidism #anemia hgb increasing -normal iron studies -B12 borderline, now on 1000 mcg daily supplementation -folate is also borderline, started Folic acid 1 mg daily -SPEP negative making monoclonal gammopathy unlikely. -LDH is slightly elevated, do not believe this is TTP or overt hemolysis, as typically plt is low and LDH is very significantly elevated in the 1000s, haptoglobin is detectable as well -this may be medication related or given his age, underlying MDS (this can only be diagnosed on bone marrow biopsy) -hgb has remained stable, if there is a drop in Hgb or any immature forms are seen in differential/ or if thrombocytopenia develops consider bone marrow biopsy HERBERT -however at this point given that HGB is stable continue to monitor , no need for transfusion - On Saturday 12/16: I spoke to his son about above. He understands pt is anemic but counts stable and safe. I discussed possibility of bone marrow biopsy but at this point he feels that the family would not want to be that aggressive but would think about it Thank you Dr Fall, for allowing me to participate in the care of this pleasant gentleman will follow periodically at this point, please call with questions Consultation Date/Type/Reason Admit Date/Time Dec 08, 2018 at 23:39 Initial Consult Date Requesting Provider: SHADI FALL MD- Date/Time of Note DATE: 12/19/18 TIME: 14:22 Exam/Review of Systems Exam Vitals Vital Signs Date Temp Pulse Resp B/P (MAP) Pulse Ox O2 O2 Flow FiO2 Time Delivery Rate 12/19/18 98.1 71 17 149/72 92 Room Air 08:12 (97) Intake and Output 12/18/18 12/18/18 12/19/18 1515:00 23:00 07:00 IntakeIntake Total 600 ml 300 ml OutputOutput Total 450 ml 200 ml BalanceBalance 150 ml 100 ml Constitutional: alert, oriented, well developed Psych: no complaints, nl mood/affect Musculoskeletal: nl extremities to inspection, nl gait and stance Results Result Diagram: 12/19/18 0517 12/19/18 0517 Results 24hrs Laboratory Tests Test 12/18/18 18:59 12/19/18 05:17 Sodium Level 126 L 126 L Potassium Level 3.9 4.1 Chloride Level 95 L 94 L Carbon Dioxide Level 23 22 Anion Gap 8 10 Blood Urea Nitrogen 7 10 Creatinine 0.67 0.69 Est Glomerular Filtrat Rate mL/min Glucose Level 110 103 Calcium Level 8.7 8.8 Hemoglobin 10.2 L Hematocrit 29.5 L Medications Medication Current Medications IV Flush (NS 3 ml) 3 ml PER PROTOCOL IV ; Start 12/09/18 at 00:00 Ondansetron HCl (Zofran Inj) 4 mg Q6H PRN IV NAUSEA/VOMITING; Start 12/09/18 at 00:00 Acetaminophen (Tylenol Tab) 650 mg Q6H PRN PO .PAIN 1-3 OR TEMP Last administered on 12/15/18 09:19; Admin Dose 650 MG; Start 12/09/18 at 00:00 Zolpidem Tartrate (Ambien) 5 mg QHS PRN PO .INSOMNIA Last administered on 12/13/18at 21:32; Admin Dose 5 MG; Start 12/09/18 at 00:00 Levothyroxine Sodium (Synthroid) 175 mcg DAILY@06 PO Last administered on 12/19/18at 06:00; Admin Dose 175 MCG; Start 12/10/18 at 06:00 Hydralazine HCl (Apresoline) 5 mg Q6H PRN IV SBP>180 OR DBP>100 Last administered on 12/13/18at 15:34; Admin Dose 5 MG; Start 12/09/18 at 09:00 Diclofenac Sodium (Voltaren 1% Gel) 4 gm QID TP Last administered on 12/19/18 12:19; Admin Dose 4 GM; Start 12/10/18 at 09:30 Lisinopril (Zestril) 20 mg BID PO Last administered on 12/19/18 08:19; Admin Dose 20 MG; Start 12/11/18 at 21:00 Pantoprazole (Protonix Tab) 40 mg DAILY@06 PO Last administered on 12/19/18at 06:00; Admin Dose 40 MG; Start 12/14/18 at 06:00 Folic Acid (Folic Acid) 1 mg DAILY PO Last administered on 12/19/18 08:19; Admin Dose 1 MG; Start 12/14/18 at 14:00 Tramadol HCl (Ultram) 50 mg Q6H PRN PO MODERATE PAIN LEVEL 4-6 Last administered on 12/18/18at 21:03; Admin Dose 50 MG; Start 12/15/18 at 10:30 Magnesium Hydroxide (Milk Of Mag) 30 ml BID PRN PO CONSTIPATION; Start 12/15/18 at 10:30 Collagenase (Santyl) 1 applic DAILY TOP Last administered on 12/19/18 08:19; Admin Dose 1 APPLIC; Start 12/15/18 at 14:00 Amlodipine Besylate (Norvasc) 5 mg DAILY PO Last administered on 12/19/18at 08:20; Admin Dose 5 MG; Start 12/17/18 at 13:30 Calcium Carbonate (Tums) 500 mg DAILY PO Last administered on 12/19/18 08:19; Admin Dose 500 MG; Start 12/18/18 at 11:30 Sodium Chloride 1,000 ml @ 50 mls/hr Q20H IV Last administered on 12/19/18at 12:18; Admin Dose 50 MLS/HR; Start 12/19/18 at 12:30 MINDY MEAD Dec 19, 2018 14:28
[2018-12-19 15:10] VITALS: BP 156/75; PULSE 64; RESP 18
--- NOTE | 2018-12-19 18:02 | PN ---
Date/Time of Note Date/Time of Note DATE: 12/19/18 TIME: 18:01 Subjective no complaints of pain, still unsteady & weak Objective Vitals Vital Signs Date Temp Pulse Resp B/P (MAP) Pulse Ox O2 O2 Flow FiO2 Time Delivery Rate 12/19/18 98.5 64 18 156/75 96 Room Air 15:10 (102) Intake and Output 12/18/18 12/18/18 12/19/18 1515:00 23:00 07:00 IntakeIntake Total 600 ml 300 ml OutputOutput Total 450 ml 200 ml BalanceBalance 150 ml 100 ml in bed, a&o x2, rr, cta, no c/c/e Results Result Diagram: 12/19/18 0517 12/19/18 1659 Medications Medications Current Medications IV Flush (NS 3 ml) 3 ml PER PROTOCOL IV ; Start 12/09/18 at 00:00 Ondansetron HCl (Zofran Inj) 4 mg Q6H PRN IV NAUSEA/VOMITING; Start 12/09/18 at 00:00 Acetaminophen (Tylenol Tab) 650 mg Q6H PRN PO .PAIN 1-3 OR TEMP Last administered on 12/15/18at 09:19; Admin Dose 650 MG; Start 12/09/18 at 00:00 Zolpidem Tartrate (Ambien) 5 mg QHS PRN PO .INSOMNIA Last administered on 12/13/18at 21:32; Admin Dose 5 MG; Start 12/09/18 at 00:00 Levothyroxine Sodium (Synthroid) 175 mcg DAILY@06 PO Last administered on 12/19/18at 06:00; Admin Dose 175 MCG; Start 12/10/18 at 06:00 Hydralazine HCl (Apresoline) 5 mg Q6H PRN IV SBP>180 OR DBP>100 Last administered on 12/13/18at 15:34; Admin Dose 5 MG; Start 12/09/18 at 09:00 Diclofenac Sodium (Voltaren 1% Gel) 4 gm QID TP Last administered on 12/19/18at 12:19; Admin Dose 4 GM; Start 12/10/18 at 09:30 Lisinopril (Zestril) 20 mg BID PO Last administered on 12/19/18at 08:19; Admin Dose 20 MG; Start 12/11/18 at 21:00 Pantoprazole (Protonix Tab) 40 mg DAILY@06 PO Last administered on 12/19/18 06:00; Admin Dose 40 MG; Start 12/14/18 at 06:00 Folic Acid (Folic Acid) 1 mg DAILY PO Last administered on 12/19/18 08:19; Admin Dose 1 MG; Start 12/14/18 at 14:00 Tramadol HCl (Ultram) 50 mg Q6H PRN PO MODERATE PAIN LEVEL 4-6 Last administered on 12/18/18 21:03; Admin Dose 50 MG; Start 12/15/18 at 10:30 Magnesium Hydroxide (Milk Of Mag) 30 ml BID PRN PO CONSTIPATION; Start 12/15/18 at 10:30 Collagenase (Santyl) 1 applic DAILY TOP Last administered on 12/19/18 08:19; Admin Dose 1 APPLIC; Start 12/15/18 at 14:00 Amlodipine Besylate (Norvasc) 5 mg DAILY PO Last administered on 12/19/18 08:20; Admin Dose 5 MG; Start 12/17/18 at 13:30 Calcium Carbonate (Tums) 500 mg DAILY PO Last administered on 12/19/18 08:19; Admin Dose 500 MG; Start 12/18/18 at 11:30 Sodium Chloride 1,000 ml @ 50 mls/hr Q20H IV Last administered on 12/19/18 12:18; Admin Dose 50 MLS/HR; Start 12/19/18 at 12:30 VTE Prophylaxis Risk score (from [facility])>0 risk: 8 SCD applied (from [facility]): Yes Lines/Catheters IV Catheter Type: Saline Lock Central line still needed: No Alegria in Place: No Assessment/Plan Assessment/Plan 1. age related weak/ balance & gait ds causing multi falls 2. low Na--eventhough pt is in free water restriction, po intake poor 3. htn--bp & hr still high 4. low t4 5. alzheimer's, low po scarlet intake ---awaiting admission into acute rehab prog ---restart ns 50cc/hr ---nacl 1gm 1pill a day trial ---add ensure 1 can a day ---inc amlodipine to 10mg qd RANDOLPH BERGERON MD Dec 19, 2018 18:02
[2018-12-19 19:30] VITALS: BP 165/78; PULSE 78; RESP 19
[2018-12-19 21:10] VITALS: BP 159/77; PULSE 73
[2018-12-19] MEDS: SODIUM CHLORIDE 1 GM TAB PO SCH (21:14)
[2018-12-20 01:17] VITALS: BP 164/85; PULSE 82; RESP 17
[2018-12-20 01:30] VITALS: BP 136/78; PULSE 75; RESP 18
[2018-12-20] MEDS: ZOLPIDEM 5 MG TAB PO PRN ×2 (02:21→20:58)
[2018-12-20] MEDS: PANTOPRAZOLE (EC) 40 MG TAB PO SCH (05:56)
[2018-12-20] MEDS: LEVOTHYROXINE 175 MCG TAB PO SCH (05:56)
[2018-12-20 08:01] VITALS: BP 168/77; PULSE 77; RESP 20
[2018-12-20] MEDS: DICLOFENAC SODIUM 1% GEL 100 GM TUBE TP SCH ×4 (09:29→20:58)
[2018-12-20] MEDS: FOLIC ACID 1 MG TAB PO SCH (09:29)
[2018-12-20] MEDS: CALCIUM CARBONATE 500 MG CHEW TAB PO SCH (09:29)
[2018-12-20] MEDS: SOD CHLORIDE 0.9% 1,000 ML IV SCH (09:29)
[2018-12-20] MEDS: LISINOPRIL 20 MG TAB PO SCH ×2 (09:29→20:58)
[2018-12-20] MEDS: SODIUM CHLORIDE 1 GM TAB PO SCH (09:29)
[2018-12-20] MEDS: AMLODIPINE 10 MG TAB PO SCH (09:30)
[2018-12-20] MEDS: COLLAGENASE 5 GM (UD JAR) TOP SCH (09:30)
[2018-12-20 14:49] VITALS: BP 148/63; PULSE 70; RESP 18
[2018-12-20] MEDS: traMADol 50 MG TAB PO PRN (18:32)
[2018-12-20 19:59] VITALS: BP 146/71; PULSE 83; RESP 17
[2018-12-21] VITALS (8 sets, daily range): BP systolic 144–181; BP diastolic 71–80; PULSE 73–89; RESP 18–20
[2018-12-21] MEDS: hydrALAzine 20 MG INJ IV PRN (02:45)
[2018-12-21] MEDS: SOD CHLORIDE 0.9% 1,000 ML IV SCH (04:19)
[2018-12-21] MEDS: LEVOTHYROXINE 175 MCG TAB PO SCH (06:26)
[2018-12-21] MEDS: PANTOPRAZOLE (EC) 40 MG TAB PO SCH (06:26)
--- NOTE | 2018-12-21 06:51 | PN ---
Date/Time of Note Date/Time of Note DATE: 12/20/18 TIME: 16:51 Subjective no c/o pain, unsteady, cannot walk alone Objective Vitals Vital Signs Date Temp Pulse Resp B/P (MAP) Pulse Ox O2 O2 Flow FiO2 Time Delivery Rate 12/21/18 78 18 144/74 03:30 (97) 12/20/18 98.6 98 19:59 12/19/18 Room Air 15:10 Intake and Output 12/20/18 12/20/18 12/21/18 1515:00 23:00 07:00 IntakeIntake Total 870 ml 1070 ml 700 ml OutputOutput Total 1625 ml 400 ml BalanceBalance -755 ml 670 ml 700 ml pleasant, depressed, usually found lying down in bed, refused to exercise with PT today, rr, cta, no c/c/e, only ate 40% food, Results Result Diagram: 12/19/18 0517 12/20/18 0602 Medications Medications Current Medications IV Flush (NS 3 ml) 3 ml PER PROTOCOL IV ; Start 12/09/18 at 00:00 Ondansetron HCl (Zofran Inj) 4 mg Q6H PRN IV NAUSEA/VOMITING; Start 12/09/18 at 00:00 Acetaminophen (Tylenol Tab) 650 mg Q6H PRN PO .PAIN 1-3 OR TEMP Last administered on 12/15/18at 09:19; Admin Dose 650 MG; Start 12/09/18 at 00:00 Zolpidem Tartrate (Ambien) 5 mg QHS PRN PO .INSOMNIA Last administered on 12/20/18at 20:58; Admin Dose 5 MG; Start 12/09/18 at 00:00 Levothyroxine Sodium (Synthroid) 175 mcg DAILY@06 PO Last administered on 12/21/18at 06:26; Admin Dose 175 MCG; Start 12/10/18 at 06:00 Hydralazine HCl (Apresoline) 5 mg Q6H PRN IV SBP>180 OR DBP>100 Last administered on 12/21/18at 02:45; Admin Dose 5 MG; Start 12/09/18 at 09:00 Diclofenac Sodium (Voltaren 1% Gel) 4 gm QID TP Last administered on 12/20/18at 20:58; Admin Dose 4 GM; Start 12/10/18 at 09:30 Lisinopril (Zestril) 20 mg BID PO Last administered on 12/20/18 20:58; Admin Dose 20 MG; Start 12/11/18 at 21:00 Pantoprazole (Protonix Tab) 40 mg DAILY@06 PO Last administered on 12/21/18 06:26; Admin Dose 40 MG; Start 12/14/18 at 06:00 Folic Acid (Folic Acid) 1 mg DAILY PO Last administered on 12/20/18 09:29; Admin Dose 1 MG; Start 12/14/18 at 14:00 Tramadol HCl (Ultram) 50 mg Q6H PRN PO MODERATE PAIN LEVEL 4-6 Last administ ered on 12/20/18 18:32; Admin Dose 50 MG; Start 12/15/18 at 10:30 Magnesium Hydroxide (Milk Of Mag) 30 ml BID PRN PO CONSTIPATION; Start 12/15/18 at 10:30 Collagenase (Santyl) 1 applic DAILY TOP Last administered on 12/20/18 09:30; Admin Dose 1 APPLIC; Start 12/15/18 at 14:00 Calcium Carbonate (Tums) 500 mg DAILY PO Last administered on 12/20/18 09:29; Admin Dose 500 MG; Start 12/18/18 at 11:30 Sodium Chloride 1,000 ml @ 50 mls/hr Q20H IV Last administered on 12/21/18 04:19; Admin Dose 50 MLS/HR; Start 12/19/18 at 12:30 Amlodipine Besylate (Norvasc) 10 mg DAILY PO Last administered on 12/20/18 09:30; Admin Dose 10 MG; Start 12/20/18 at 09:00 Sodium Chloride (Nacl) 1 gm DAILY PO Last administered on 12/20/18 09:29; Admin Dose 1 GM; Start 12/19/18 at 19:30 VTE Prophylaxis Risk score (from Nsg)>0 risk: 7 SCD applied (from Nsg): Yes Lines/Catheters IV Catheter Type: Saline Lock Central line still needed: No Alegria in Place: No Assessment/Plan Assessment/Plan 1. low NaCl--drink coke zero, on fluid 1l/24hrs restriction 2. htn--still fluctuating 3. weak & atrophy of muscles--freq falls, not independent, very unsteady gait 4. low t4 5. dementia/ depression ---awaiting acute rehab eval ---meantime encourage full PT exercise ---d/c ivf ---start Na pill qd ---spoken to RANDOLPH Watson MD Dec 21, 2018 06:51
--- NOTE | 2018-12-21 06:51 | PN ---
Date/Time of Note Date/Time of Note DATE: 12/21/18 TIME: 06:51 Objective Vitals Vital Signs Date Temp Pulse Resp B/P (MAP) Pulse Ox O2 O2 Flow FiO2 Time Delivery Rate 12/21/18 78 18 144/74 03:30 (97) 12/20/18 98.6 98 19:59 12/19/18 Room Air 15:10 Intake and Output 12/20/18 12/20/18 12/21/18 1515:00 23:00 07:00 IntakeIntake Total 870 ml 1070 ml 700 ml OutputOutput Total 1625 ml 400 ml BalanceBalance -755 ml 670 ml 700 ml Results Result Diagram: 12/19/18 0517 12/20/18 0602 Medications Medications Current Medications IV Flush (NS 3 ml) 3 ml PER PROTOCOL IV ; Start 12/09/18 at 00:00 Ondansetron HCl (Zofran Inj) 4 mg Q6H PRN IV NAUSEA/VOMITING; Start 12/09/18 at 00:00 Acetaminophen (Tylenol Tab) 650 mg Q6H PRN PO .PAIN 1-3 OR TEMP Last administered on 12/15/18at 09:19; Admin Dose 650 MG; Start 12/09/18 at 00:00 Zolpidem Tartrate (Ambien) 5 mg QHS PRN PO .INSOMNIA Last administered on 12/20/18at 20:58; Admin Dose 5 MG; Start 12/09/18 at 00:00 Levothyroxine Sodium (Synthroid) 175 mcg DAILY@06 PO Last administered on 12/21/18at 06:26; Admin Dose 175 MCG; Start 12/10/18 at 06:00 Hydralazine HCl (Apresoline) 5 mg Q6H PRN IV SBP>180 OR DBP>100 Last administered on 12/21/18at 02:45; Admin Dose 5 MG; Start 12/09/18 at 09:00 Diclofenac Sodium (Voltaren 1% Gel) 4 gm QID TP Last administered on 12/20/18at 20:58; Admin Dose 4 GM; Start 12/10/18 at 09:30 Lisinopril (Zestril) 20 mg BID PO Last administered on 12/20/18at 20:58; Admin Dose 20 MG; Start 12/11/18 at 21:00 Pantoprazole (Protonix Tab) 40 mg DAILY@06 PO Last administered on 12/21/18 06:26; Admin Dose 40 MG; Start 12/14/18 at 06:00 Folic Acid (Folic Acid) 1 mg DAILY PO Last administered on 12/20/18 09:29; Admin Dose 1 MG; Start 12/14/18 at 14:00 Tramadol HCl (Ultram) 50 mg Q6H PRN PO MODERATE PAIN LEVEL 4-6 Last administe red on 12/20/18 18:32; Admin Dose 50 MG; Start 12/15/18 at 10:30 Magnesium Hydroxide (Milk Of Mag) 30 ml BID PRN PO CONSTIPATION; Start 12/15/18 at 10:30 Collagenase (Santyl) 1 applic DAILY TOP Last administered on 12/20/18 09:30; Admin Dose 1 APPLIC; Start 12/15/18 at 14:00 Calcium Carbonate (Tums) 500 mg DAILY PO Last administered on 12/20/18 09:29; Admin Dose 500 MG; Start 12/18/18 at 11:30 Sodium Chloride 1,000 ml @ 50 mls/hr Q20H IV Last administered on 12/21/18 04:19; Admin Dose 50 MLS/HR; Start 12/19/18 at 12:30 Amlodipine Besylate (Norvasc) 10 mg DAILY PO Last administered on 12/20/18 09:30; Admin Dose 10 MG; Start 12/20/18 at 09:00 Sodium Chloride (Nacl) 1 gm DAILY PO Last administered on 12/20/18 09:29; Admin Dose 1 GM; Start 12/19/18 at 19:30 VTE Prophylaxis Risk score (from Nsg)>0 risk: 7 SCD applied (from Nsg): Yes Lines/Catheters IV Catheter Type: Saline Lock Central line still needed: No Alegria in Place: No RANDOLPH BERGERON MD Dec 21, 2018 06:51
[2018-12-21] MEDS: CALCIUM CARBONATE 500 MG CHEW TAB PO SCH (09:05)
[2018-12-21] MEDS: AMLODIPINE 10 MG TAB PO SCH (09:05)
[2018-12-21] MEDS: SODIUM CHLORIDE 1 GM TAB PO SCH ×3 (09:05→18:07)
[2018-12-21] MEDS: FOLIC ACID 1 MG TAB PO SCH (09:05)
[2018-12-21] MEDS: COLLAGENASE 5 GM (UD JAR) TOP SCH (09:06)
[2018-12-21] MEDS: DICLOFENAC SODIUM 1% GEL 100 GM TUBE TP SCH ×4 (09:06→20:22)
[2018-12-21] MEDS: LISINOPRIL 20 MG TAB PO SCH ×2 (09:06→20:22)
[2018-12-21] MEDS: ACETAMINOPHEN 325 MG TAB PO PRN ×2 (09:13→20:22)
--- NOTE | 2018-12-21 17:45 | PN ---
Date/Time of Note Date/Time of Note DATE: 12/21/18 TIME: 17:45 Subjective no c/o pain, still cannot walk freely to bathroom alone Objective Vitals Vital Signs Date Temp Pulse Resp B/P (MAP) Pulse Ox O2 O2 Flow FiO2 Time Delivery Rate 12/21/18 98.3 74 20 155/72 96 13:19 (99) 12/21/18 Room Air 02:40 Intake and Output 12/20/18 12/20/18 12/21/18 1515:00 23:00 07:00 IntakeIntake Total 870 ml 1070 ml 700 ml OutputOutput Total 1625 ml 400 ml BalanceBalance -755 ml 670 ml 700 ml in bed, a&o x2, rr, cta, no c/c/e Results Result Diagram: 12/21/1812 12/21/18 0712 Medications Medications Current Medications IV Flush (NS 3 ml) 3 ml PER PROTOCOL IV ; Start 12/09/18 at 00:00 Ondansetron HCl (Zofran Inj) 4 mg Q6H PRN IV NAUSEA/VOMITING; Start 12/09/18 at 00:00 Acetaminophen (Tylenol Tab) 650 mg Q6H PRN PO .PAIN 1-3 OR TEMP Last administered on 12/21/18at 09:13; Admin Dose 650 MG; Start 12/09/18 at 00:00 Zolpidem Tartrate (Ambien) 5 mg QHS PRN PO .INSOMNIA Last administered on 12/20/18at 20:58; Admin Dose 5 MG; Start 12/09/18 at 00:00 Levothyroxine Sodium (Synthroid) 175 mcg DAILY@06 PO Last administered on 12/21/18at 06:26; Admin Dose 175 MCG; Start 12/10/18 at 06:00 Hydralazine HCl (Apresoline) 5 mg Q6H PRN IV SBP>180 OR DBP>100 Last administered on 12/21/18at 02:45; Admin Dose 5 MG; Start 12/09/18 at 09:00 Diclofenac Sodium (Voltaren 1% Gel) 4 gm QID TP Last administered on 12/21/18at 12:46; Admin Dose 4 GM; Start 12/10/18 at 09:30 Lisinopril (Zestril) 20 mg BID PO Last administered on 12/21/18 09:06; Admin Dose 20 MG; Start 12/11/18 at 21:00 Pantoprazole (Protonix Tab) 40 mg DAILY@06 PO Last administered on 12/21/18 06:26; Admin Dose 40 MG; Start 12/14/18 at 06:00 Folic Acid (Folic Acid) 1 mg DAILY PO Last administered on 12/21/18 09:05; Admin Dose 1 MG; Start 12/14/18 at 14:00 Tramadol HCl (Ultram) 50 mg Q6H PRN PO MODERATE PAIN LEVEL 4-6 Last administe red on 12/20/18 18:32; Admin Dose 50 MG; Start 12/15/18 at 10:30 Magnesium Hydroxide (Milk Of Mag) 30 ml BID PRN PO CONSTIPATION; Start 12/15/18 at 10:30 Collagenase (Santyl) 1 applic DAILY TOP Last administered on 12/21/18 09:06; Admin Dose 1 APPLIC; Start 12/15/18 at 14:00 Calcium Carbonate (Tums) 500 mg DAILY PO Last administered on 12/21/18 09:05; Admin Dose 500 MG; Start 12/18/18 at 11:30 Sodium Chloride 1,000 ml @ 50 mls/hr Q20H IV Last administered on 12/21/18 04:19; Admin Dose 50 MLS/HR; Start 12/19/18 at 12:30; Stop 12/22/18 at 00:18 Amlodipine Besylate (Norvasc) 10 mg DAILY PO Last administered on 12/21/18 09:05; Admin Dose 10 MG; Start 12/20/18 at 09:00 Sodium Chloride (Nacl) 1 gm WITH MEALS PO Last administered on 12/21/18 12:46; Admin Dose 1 GM; Start 12/21/18 at 08:00 VTE Prophylaxis Risk score (from Nsg)>0 risk: 7 SCD applied (from Nsg): Yes Lines/Catheters IV Catheter Type: Saline Lock Central line still needed: No Alegria in Place: No Assessment/Plan Assessment/Plan 1. low NaCl---down as soon as NS ivf was stopped 2. age related musc weak/ atrophy & freq falls 3. dementia/ depression/ low po scarlet intake 4. htn 5. low t4 --- cont free fluid restriction, --- inc Na pills tid --- awaiting insurance ok on acute rehab transfer --- assist eating --- must cont full PT exercises daily RANDOLPH BERGERON MD Dec 21, 2018 17:45
[2018-12-22 02:00] VITALS: BP 148/63; PULSE 59; RESP 20
[2018-12-22] MEDS: PANTOPRAZOLE (EC) 40 MG TAB PO SCH (05:55)
[2018-12-22] MEDS: LEVOTHYROXINE 175 MCG TAB PO SCH (05:55)
[2018-12-22 07:48] VITALS: BP 135/65; PULSE 70; RESP 18
[2018-12-22] MEDS: FOLIC ACID 1 MG TAB PO SCH (08:30)
[2018-12-22] MEDS: AMLODIPINE 10 MG TAB PO SCH (08:30)
[2018-12-22] MEDS: CALCIUM CARBONATE 500 MG CHEW TAB PO SCH (08:30)
[2018-12-22] MEDS: SODIUM CHLORIDE 1 GM TAB PO SCH ×3 (08:30→17:07)
[2018-12-22] MEDS: COLLAGENASE 5 GM (UD JAR) TOP SCH (08:30)
[2018-12-22] MEDS: LISINOPRIL 20 MG TAB PO SCH ×2 (08:30→20:40)
[2018-12-22] MEDS: DICLOFENAC SODIUM 1% GEL 100 GM TUBE TP SCH ×4 (08:31→20:40)
[2018-12-22 14:01] VITALS: BP 153/70; PULSE 72; RESP 18
--- NOTE | 2018-12-22 18:53 | PN ---
Date/Time of Note Date/Time of Note DATE: 12/22/18 TIME: 18:48 Subjective bored, no pain, cannot walk to chair 10ft away alone Objective Vitals Vital Signs Date Temp Pulse Resp B/P (MAP) Pulse Ox O2 O2 Flow FiO2 Time Delivery Rate 12/22/18 98.8 72 18 153/70 94 Room Air 14:01 (97) Intake and Output 12/21/18 12/21/18 12/22/18 1515:00 23:00 07:00 IntakeIntake Total 600 ml 840 ml OutputOutput Total 1050 ml 375 ml 310 ml BalanceBalance -450 ml 465 ml -310 ml in bed, flat affect, pleasant, a&o x2, rr, cta, no c/c/e Results Result Diagram: 12/21/18 0712 12/22/18 0443 Medications Medications Current Medications IV Flush (NS 3 ml) 3 ml PER PROTOCOL IV ; Start 12/09/18 at 00:00 Ondansetron HCl (Zofran Inj) 4 mg Q6H PRN IV NAUSEA/VOMITING; Start 12/09/18 at 00:00 Acetaminophen (Tylenol Tab) 650 mg Q6H PRN PO .PAIN 1-3 OR TEMP Last administered on 12/21/18at 20:22; Admin Dose 650 MG; Start 12/09/18 at 00:00 Zolpidem Tartrate (Ambien) 5 mg QHS PRN PO .INSOMNIA Last administered on 12/20at 20:58; Admin Dose 5 MG; Start 12/09/18 at 00:00 Levothyroxine Sodium (Synthroid) 175 mcg DAILY@06 PO Last administered on 12/22/18at 05:55; Admin Dose 175 MCG; Start 12/10/18 at 06:00 Hydralazine HCl (Apresoline) 5 mg Q6H PRN IV SBP>180 OR DBP>100 Last administered on 12/21/18at 02:45; Admin Dose 5 MG; Start 12/09/18 at 09:00 Diclofenac Sodium (Voltaren 1% Gel) 4 gm QID TP Last administered on 12/22/18at 17:07; Admin Dose 4 GM; Start 12/10/18 at 09:30 Lisinopril (Zestril) 20 mg BID PO Last administered on 12/22/18at 08:30; Admin Dose 20 MG; Start 12/11/18 at 21:00 Pantoprazole (Protonix Tab) 40 mg DAILY@06 PO Last administered on 12/22/18 05:55; Admin Dose 40 MG; Start 12/14/18 at 06:00 Folic Acid (Folic Acid) 1 mg DAILY PO Last administered on 12/22/18 08:30; Admin Dose 1 MG; Start 12/14/18 at 14:00 Tramadol HCl (Ultram) 50 mg Q6H PRN PO MODERATE PAIN LEVEL 4-6 Last administered on 12/20/18 18:32; Admin Dose 50 MG; Start 12/15/18 at 10:30 Magnesium Hydroxide (Milk Of Mag) 30 ml BID PRN PO CONSTIPATION; Start 12/15/18 at 10:30 Collagenase (Santyl) 1 applic DAILY TOP Last administered on 12/22/18 08:30; Admin Dose 1 APPLIC; Start 12/15/18 at 14:00 Calcium Carbonate (Tums) 500 mg DAILY PO Last administered on 12/22/18 08:30; Admin Dose 500 MG; Start 12/18/18 at 11:30 Amlodipine Besylate (Norvasc) 10 mg DAILY PO Last administered on 12/22/18 08:30; Admin Dose 10 MG; Start 12/20/18 at 09:00 Sodium Chloride (Nacl) 1 gm WITH MEALS PO Last administered on 12/22/18 1 7:07; Admin Dose 1 GM; Start 12/21/18 at 08:00 VTE Prophylaxis Risk score (from Ns)>0 risk: 7 SCD applied (from Nsg): Yes Lines/Catheters IV Catheter Type: Saline Lock Central line still needed: No Alegria in Place: No Assessment/Plan Assessment/Plan 1. low Na 2. age related weak & atrophy of musc--on/off refusing to exercise with PT 3. dementia--only 50-60% po intake 4. htn 5. ckd II 6. low t4 ---Na pills helping to inc Na level, cont ---must encourage to fully participate in daily PT exercise ---still awaiting Insurance authoriz re: acute rehab transfer ---zoloft 25mg qam trial ---cont all other supportive care RANDOLPH BERGERON MD Dec 22, 2018 18:53
[2018-12-22 19:47] VITALS: BP 139/70; PULSE 80; RESP 17
[2018-12-22] MEDS: SERTRALINE 50 MG TAB PO SCH (20:40)
[2018-12-23] MEDS: ZOLPIDEM 5 MG TAB PO PRN ×2 (00:47→20:24)
[2018-12-23 01:46] VITALS: BP 150/86; PULSE 78; RESP 18
[2018-12-23] MEDS: LEVOTHYROXINE 175 MCG TAB PO SCH (05:32)
[2018-12-23] MEDS: PANTOPRAZOLE (EC) 40 MG TAB PO SCH (05:32)
[2018-12-23 07:33] VITALS: BP 162/76; PULSE 70; RESP 18
[2018-12-23] MEDS: SERTRALINE 50 MG TAB PO SCH (08:26)
[2018-12-23] MEDS: COLLAGENASE 5 GM (UD JAR) TOP SCH (08:26)
[2018-12-23] MEDS: FOLIC ACID 1 MG TAB PO SCH (08:26)
[2018-12-23] MEDS: LISINOPRIL 20 MG TAB PO SCH ×2 (08:26→20:24)
[2018-12-23] MEDS: CALCIUM CARBONATE 500 MG CHEW TAB PO SCH (08:26)
[2018-12-23] MEDS: SODIUM CHLORIDE 1 GM TAB PO SCH ×3 (08:26→17:49)
[2018-12-23] MEDS: DICLOFENAC SODIUM 1% GEL 100 GM TUBE TP SCH ×4 (08:26→20:24)
[2018-12-23] MEDS: AMLODIPINE 10 MG TAB PO SCH (08:26)
[2018-12-23 14:01] VITALS: BP 134/60; PULSE 75; RESP 18
[2018-12-23 19:45] VITALS: BP 159/81; PULSE 85; RESP 18
[2018-12-24 02:00] VITALS: BP 125/61; PULSE 80; RESP 18
[2018-12-24] MEDS: PANTOPRAZOLE (EC) 40 MG TAB PO SCH (05:44)
[2018-12-24] MEDS: LEVOTHYROXINE 175 MCG TAB PO SCH (05:44)
[2018-12-24 08:00] VITALS: BP 141/76; PULSE 82; RESP 18
[2018-12-24] MEDS: SODIUM CHLORIDE 1 GM TAB PO SCH ×3 (08:55→17:17)
[2018-12-24] MEDS: SERTRALINE 50 MG TAB PO SCH (08:56)
[2018-12-24] MEDS: COLLAGENASE 5 GM (UD JAR) TOP SCH (08:56)
[2018-12-24] MEDS: AMLODIPINE 10 MG TAB PO SCH (08:56)
[2018-12-24] MEDS: FOLIC ACID 1 MG TAB PO SCH (08:56)
[2018-12-24] MEDS: DICLOFENAC SODIUM 1% GEL 100 GM TUBE TP SCH ×4 (08:56→21:17)
[2018-12-24] MEDS: LISINOPRIL 20 MG TAB PO SCH ×2 (08:56→21:17)
[2018-12-24] MEDS: CALCIUM CARBONATE 500 MG CHEW TAB PO SCH (08:56)
--- NOTE | 2018-12-24 12:03 | PN ---
Date/Time of Note Date/Time of Note DATE: 12/24/18 TIME: 11:59 Assessment/Plan VTE Prophylaxis Risk score (from Ns)>0 risk: 6 SCD applied (from Ns): Yes Pharmacological prophylaxis: other Lines/Catheters IV Catheter Type (from Nrsg): Peripheral IV Urinary Cath still in place: No Assessment/Plan Assessment/Plan 1. low Na- on tabs has improve. currently been staying at 130 2. age related weak & atrophy of musc--on/off refusing to exercise with PT 3. dementia--only 50-60% po intake 4. htn 5. ckd II 6. low t4 ---Na pills helping to inc Na level, cont ---must encourage to fully participate in daily PT exercise ---still awaiting Insurance authoriz re: acute rehab transfer also snf if rehab denies. ---zoloft 25mg qam trial ---cont all other supportive care Result Diagram: 12/23/1852212/23/18522 Subjective 24 Hr Interval Summary Free Text/Dictation no acute changes. comfortable. resting. Exam/Review of Systems Exam Vitals Vital Signs Date Temp Pulse Resp B/P (MAP) Pulse Ox O2 O2 Flow FiO2 Time Delivery Rate 12/24/18 98.0 82 18 141/76 95 08:00 (97) 12/23/18 Room Air 14:01 Intake and Output 12/23/18 12/23/18 12/24/18 1515:00 23:00 07:00 IntakeIntake Total 120 ml 240 ml OutputOutput Total 275 ml 150 ml 200 ml BalanceBalance -155 ml 90 ml -200 ml Head: normocephalic Respiratory: clear to auscultation Cardiovascular: regular rate and rhythm Medications Medication Current Medications IV Flush (NS 3 ml) 3 ml PER PROTOCOL IV ; Start 12/09/18 at 00:00 Ondansetron HCl (Zofran Inj) 4 mg Q6H PRN IV NAUSEA/VOMITING; Start 12/09/18 at 00:00 Acetaminophen (Tylenol Tab) 650 mg Q6H PRN PO .PAIN 1-3 OR TEMP Last administered on 12/21/18at 20:22; Admin Dose 650 MG; Start 12/09/18 at 00:00 Zolpidem Tartrate (Ambien) 5 mg QHS PRN PO .INSOMNIA Last administered on 12/23/18 20:24; Admin Dose 5 MG; Start 12/09/18 at 00:00 Levothyroxine Sodium (Synthroid) 175 mcg DAILY@06 PO Last administered on 12/24/18 05:44; Admin Dose 175 MCG; Start 12/10/18 at 06:00 Hydralazine HCl (Apresoline) 5 mg Q6H PRN IV SBP>180 OR DBP>100 Last administered on 12/21/18 02:45; Admin Dose 5 MG; Start 12/09/18 at 09:00 Diclofenac Sodium (Voltaren 1% Gel) 4 gm QID TP Last administered on 12/24/18 08:56; Admin Dose 4 GM; Start 12/10/18 at 09:30 Lisinopril (Zestril) 20 mg BID PO Last administered on 12/24/18 08:56; Admin Dose 20 MG; Start 12/11/18 at 21:00 Pantoprazole (Protonix Tab) 40 mg DAILY@06 PO Last administered on 12/24/18 05:44; Admin Dose 40 MG; Start 12/14/18 at 06:00 Folic Acid (Folic Acid) 1 mg DAILY PO Last administered on 12/24/18 08:56; Admin Dose 1 MG; Start 12/14/18 at 14:00 Tramadol HCl (Ultram) 50 mg Q6H PRN PO MODERATE PAIN LEVEL 4-6 Last administered on 12/20/18 18:32; Admin Dose 50 MG; Start 12/15/18 at 10:30 Magnesium Hydroxide (Milk Of Mag) 30 ml BID PRN PO CONSTIPATION; Start 12/15/18 at 10:30 Collagenase (Santyl) 1 applic DAILY TOP Last administered on 12/24/18 08:56; Admin Dose 1 APPLIC; Start 12/15/18 at 14:00 Calcium Carbonate (Tums) 500 mg DAILY PO Last administered on 12/24/18 08:56; Admin Dose 500 MG; Start 12/18/18 at 11:30 Amlodipine Besylate (Norvasc) 10 mg DAILY PO Last administered on 12/24/18 08:56; Admin Dose 10 MG; Start 12/20/18 at 09:00 Sodium Chloride (Nacl) 1 gm WITH MEALS PO Last administered on 7/20/19at 08:55; Admin Dose 1 GM; Start 12/21/18 at 08:00 Sertraline HCl (Zoloft) 25 mg DAILY PO Last administered on 12/24/18at 08:56; Admin Dose 25 MG; Start 12/22/18 at 19:00 TEODORO CARBALLO MD Dec 24, 2018 12:03
[2018-12-24 14:00] VITALS: BP 151/75; PULSE 79; RESP 18
[2018-12-24 20:20] VITALS: BP 131/70; PULSE 81; RESP 18
[2018-12-25 02:23] VITALS: BP 126/66; PULSE 71; RESP 16
[2018-12-25] MEDS: LEVOTHYROXINE 175 MCG TAB PO SCH (05:25)
[2018-12-25] MEDS: PANTOPRAZOLE (EC) 40 MG TAB PO SCH (05:25)
[2018-12-25 07:48] VITALS: BP 115/58; PULSE 72; RESP 18
[2018-12-25] MEDS: FOLIC ACID 1 MG TAB PO SCH (08:19)
[2018-12-25] MEDS: SODIUM CHLORIDE 1 GM TAB PO SCH ×3 (08:19→16:53)
[2018-12-25] MEDS: COLLAGENASE 5 GM (UD JAR) TOP SCH (08:20)
[2018-12-25] MEDS: CALCIUM CARBONATE 500 MG CHEW TAB PO SCH (08:20)
[2018-12-25] MEDS: SERTRALINE 50 MG TAB PO SCH (08:20)
[2018-12-25] MEDS: AMLODIPINE 10 MG TAB PO SCH (08:20)
[2018-12-25] MEDS: LISINOPRIL 20 MG TAB PO SCH ×2 (08:20→21:09)
[2018-12-25] MEDS: DICLOFENAC SODIUM 1% GEL 100 GM TUBE TP SCH ×4 (08:21→21:09)
--- NOTE | 2018-12-25 11:13 | PN ---
Date/Time of Note Date/Time of Note DATE: 12/25/18 TIME: 11:11 Assessment/Plan VTE Prophylaxis Risk score (from Ns)>0 risk: 4 SCD applied (from Ns): Yes SCD contraindicated: low risk/ambulating Pharmacological prophylaxis: other Lines/Catheters IV Catheter Type (from Nrs): Saline Lock Urinary Cath still in place: No Assessment/Plan Assessment/Plan 1. low Na- on tabs has improve. currently been staying at 130 up to 132 today pt is alert and answers when questioned. 2. age related weak & atrophy of musc--on/off refusing to exercise with PT 3. dementia--only 50-60% po intake 4. htn 5. ckd II 6. low t4 ---Na pills helping to inc Na level, cont ---must encourage to fully participate in daily PT exercise ---still awaiting Insurance authoriz re: acute rehab transfer also snf if rehab denies. ---zoloft 25mg qam trial ---cont all other supportive care Result Diagram: 12/25/18 0612/25/18 0604 Results 24hrs Laboratory Tests Test 12/25/18 06:04 White Blood Count 6.2 # Red Blood Count 3.59 L Hemoglobin 10.5 L Hematocrit 31.2 L Mean Corpuscular Volume 86.9 Mean Corpuscular Hemoglobin 29.2 Mean Corpuscular Hemoglobin Concent 33.7 Red Cell Distribution Width 13.9 Platelet Count 398 Mean Platelet Volume 8.5 Immature Granulocytes % 0.200 Neutrophils % 70.3 Lymphocytes % 14.3 L Monocytes % 11.5 H Eosinophils % 1.8 Basophils % 1.9 Nucleated Red Blood Cells % 0.0 Immature Granulocytes # 0.010 Neutrophils # 4.4 Lymphocytes # 0.9 Monocytes # 0.7 Eosinophils # 0.1 Basophils # 0.1 Nucleated Red Blood Cells # 0.0 Sodium Level 132 L Potassium Level 3.6 Chloride Level 99 Carbon Dioxide Level 22 Anion Gap 11 Blood Urea Nitrogen 18 Creatinine 0.89 Est Glomerular Filtrat Rate mL/min Glucose Level 124 Calcium Level 9.2 Subjective 24 Hr Interval Summary Free Text/Dictation alert denies n/v or pain. son called to discusse father was mentally worse yesterday. Exam/Review of Systems Exam Vitals Vital Signs Date Temp Pulse Resp B/P (MAP) Pulse Ox O2 O2 Flow FiO2 Time Delivery Rate 12/25/18 98.5 72 18 115/58 92 07:48 (77) 12/23/18 Room Air 14:01 Intake and Output 12/24/18 12/24/18 12/25/18 1515:00 23:00 07:00 IntakeIntake Total 120 ml 200 ml 200 ml OutputOutput Total 500 ml BalanceBalance -380 ml 200 ml 200 ml Constitutional: alert Respiratory: clear to auscultation Cardiovascular: regular rate and rhythm Results Results 24hrs Laboratory Tests Test 12/25/18 06:04 White Blood Count 6.2 # Red Blood Count 3.59 L Hemoglobin 10.5 L Hematocrit 31.2 L Mean Corpuscular Volume 86.9 Mean Corpuscular Hemoglobin 29.2 Mean Corpuscular Hemoglobin Concent 33.7 Red Cell Distribution Width 13.9 Platelet Count 398 Mean Platelet Volume 8.5 Immature Granulocytes % 0.200 Neutrophils % 70.3 Lymphocytes % 14.3 L Monocytes % 11.5 H Eosinophils % 1.8 Basophils % 1.9 Nucleated Red Blood Cells % 0.0 Immature Granulocytes # 0.010 Neutrophils # 4.4 Lymphocytes # 0.9 Monocytes # 0.7 Eosinophils # 0.1 Basophils # 0.1 Nucleated Red Blood Cells # 0.0 Sodium Level 132 L Potassium Level 3.6 Chloride Level 99 Carbon Dioxide Level 22 Anion Gap 11 Blood Urea Nitrogen 18 Creatinine 0.89 Est Glomerular Filtrat Rate mL/min Glucose Level 124 Calcium Level 9.2 Medications Medication Current Medications IV Flush (NS 3 ml) 3 ml PER PROTOCOL IV ; Start 12/09/18 at 00:00 Ondansetron HCl (Zofran Inj) 4 mg Q6H PRN IV NAUSEA/VOMITING; Start 12/09/18 at 00:00 Acetaminophen (Tylenol Tab) 650 mg Q6H PRN PO .PAIN 1-3 OR TEMP Last administered on 12/21/18at 20:22; Admin Dose 650 MG; Start 12/09/18 at 00:00 Zolpidem Tartrate (Ambien) 5 mg QHS PRN PO .INSOMNIA Last administered on 12/23/18at 20:24; Admin Dose 5 MG; Start 12/09/18 at 00:00 Levothyroxine Sodium (Synthroid) 175 mcg DAILY@06 PO Last administered on 12/25/18at 05:25; Admin Dose 175 MCG; Start 12/10/18 at 06:00 Hydralazine HCl (Apresoline) 5 mg Q6H PRN IV SBP>180 OR DBP>100 Last administered on 12/21/18at 02:45; Admin Dose 5 MG; Start 12/09/18 at 09:00 Diclofenac Sodium (Voltaren 1% Gel) 4 gm QID TP Last administered on 12/25/18 08:21; Admin Dose 4 GM; Start 12/10/18 at 09:30 Lisinopril (Zestril) 20 mg BID PO Last administered on 12/24/18 21:17; Admin D ose 20 MG; Start 12/11/18 at 21:00 Pantoprazole (Protonix Tab) 40 mg DAILY@06 PO Last administered on 12/25/18 05:25; Admin Dose 40 MG; Start 12/14/18 at 06:00 Folic Acid (Folic Acid) 1 mg DAILY PO Last administered on 12/25/18 08:19; Admin Dose 1 MG; Start 12/14/18 at 14:00 Tramadol HCl (Ultram) 50 mg Q6H PRN PO MODERATE PAIN LEVEL 4-6 Last administered on 12/20/18at 18:32; Admin Dose 50 MG; Start 12/15/18 at 10:30 Magnesium Hydroxide (Milk Of Mag) 30 ml BID PRN PO CONSTIPATION; Start 12/15/18 at 10:30 Collagenase (Santyl) 1 applic DAILY TOP Last administered on 12/25/18 08:20; Admin Dose 1 APPLIC; Start 12/15/18 at 14:00 Calcium Carbonate (Tums) 500 mg DAILY PO Last administered on 12/25/18at 08:20; Admin Dose 500 MG; Start 12/18/18 at 11:30 Amlodipine Besylate (Norvasc) 10 mg DAILY PO Last administered on 12/25/18 08:20; Admin Dose 10 MG; Start 12/20/18 at 09:00 Sodium Chloride (Nacl) 1 gm WITH MEALS PO Last administered on 12/25/18 08:19; Admin Dose 1 GM; Start 12/21/18 at 08:00 Sertraline HCl (Zoloft) 25 mg DAILY PO Last administered on 12/25/18 08:20; Admin Dose 25 MG; Start 12/22/18 at 19:00 TEODORO CARBALLO MD Dec 25, 2018 11:13
[2018-12-25 14:30] VITALS: BP 131/65; PULSE 74; RESP 18
[2018-12-25 19:58] VITALS: BP 132/67; PULSE 76; RESP 16
[2018-12-25 22:58] VITALS: BP 125/72; PULSE 92; RESP 18
[2018-12-26 01:23] VITALS: BP 115/64; PULSE 79; RESP 18
[2018-12-26] MEDS: PANTOPRAZOLE (EC) 40 MG TAB PO SCH (05:40)
[2018-12-26] MEDS: LEVOTHYROXINE 175 MCG TAB PO SCH (05:40)
[2018-12-26 07:53] VITALS: BP 136/65; PULSE 79; RESP 18
[2018-12-26] MEDS: CALCIUM CARBONATE 500 MG CHEW TAB PO SCH (09:00)
[2018-12-26] MEDS: LISINOPRIL 20 MG TAB PO SCH ×2 (09:01→20:13)
[2018-12-26] MEDS: FOLIC ACID 1 MG TAB PO SCH (09:01)
[2018-12-26] MEDS: SODIUM CHLORIDE 1 GM TAB PO SCH ×3 (09:01→17:23)
[2018-12-26] MEDS: SERTRALINE 50 MG TAB PO SCH (09:01)
[2018-12-26] MEDS: DICLOFENAC SODIUM 1% GEL 100 GM TUBE TP SCH ×4 (09:02→20:13)
[2018-12-26] MEDS: COLLAGENASE 5 GM (UD JAR) TOP SCH (09:02)
[2018-12-26] MEDS: AMLODIPINE 10 MG TAB PO SCH (09:02)
[2018-12-26 13:17] VITALS: BP 117/58; PULSE 70; RESP 20
[2018-12-26] MEDS ORDERED: IOHEXOL 100 ML ONE (14:39)
[2018-12-26] MEDS ORDERED: SOD CHLORIDE 0.9% 100 ML ONE (14:39)
--- NOTE | 2018-12-26 14:41 | PN ---
Date/Time of Note Date/Time of Note DATE: 12/23/18 TIME: 14:40 Subjective no c/o pain, weak+ Objective Vitals Vital Signs Date Temp Pulse Resp B/P (MAP) Pulse Ox O2 O2 Flow FiO2 Time Delivery Rate 12/26/18 97.3 70 20 117/58 95 13:17 (77) 12/23/18 Room Air 14:01 Intake and Output 12/25/18 12/25/18 12/26/18 1515:00 23:00 07:00 IntakeIntake Total 300 ml 260 ml 120 ml OutputOutput Total 75 ml 200 ml BalanceBalance 300 ml 185 ml -80 ml pt was unable to cooperate 100% with daily PT exercise, in bed, a&o x2, rr, cta, no c/c/e, thin & atrophy of low ext musc+ Results Result Diagram: 12/25/1860312/25/1804 Medications Medications Current Medications IV Flush (NS 3 ml) 3 ml PER PROTOCOL IV ; Start 12/09/18 at 00:00 Ondansetron HCl (Zofran Inj) 4 mg Q6H PRN IV NAUSEA/VOMITING; Start 12/09/18 at 00:00 Acetaminophen (Tylenol Tab) 650 mg Q6H PRN PO .PAIN 1-3 OR TEMP Last ad ministered on 12/21/18at 20:22; Admin Dose 650 MG; Start 12/09/18 at 00:00 Zolpidem Tartrate (Ambien) 5 mg QHS PRN PO .INSOMNIA Last administered on 12/23/18at 20:24; Admin Dose 5 MG; Start 12/09/18 at 00:00 Levothyroxine Sodium (Synthroid) 175 mcg DAILY@06 PO Last administered on 12/26/18at 05:40; Admin Dose 175 MCG; Start 12/10/18 at 06:00 Hydralazine HCl (Apresoline) 5 mg Q6H PRN IV SBP>180 OR DBP>100 Last administered on 12/21/18at 02:45; Admin Dose 5 MG; Start 12/09/18 at 09:00 Diclofenac Sodium (Voltaren 1% Gel) 4 gm QID TP Last administered on 12/26/18at 12:50; Admin Dose 4 GM; Start 12/10/18 at 09:30 Lisinopril (Zestril) 20 mg BID PO Last administered on 12/26/18 09:01; Admin Dose 20 MG; Start 12/11/18 at 21:00 Pantoprazole (Protonix Tab) 40 mg DAILY@06 PO Last administered on 12/26/18 05:40; Admin Dose 40 MG; Start 12/14/18 at 06:00 Folic Acid (Folic Acid) 1 mg DAILY PO Last administered on 12/26/18 09:01; Admin Dose 1 MG; Start 12/14/18 at 14:00 Tramadol HCl (Ultram) 50 mg Q6H PRN PO MODERATE PAIN LEVEL 4-6 Last administered on 12/20/18 18:32; Admin Dose 50 MG; Start 12/15/18 at 10:30 Magnesium Hydroxide (Milk Of Mag) 30 ml BID PRN PO CONSTIPATION; Start 12/15/18 at 10:30 Collagenase (Santyl) 1 applic DAILY TOP Last administered on 12/26/18 09:02; Admin Dose 1 APPLIC; Start 12/15/18 at 14:00 Calcium Carbonate (Tums) 500 mg DAILY PO Last administered on 12/26/18 09:00; Admin Dose 500 MG; Start 12/18/18 at 11:30 Amlodipine Besylate (Norvasc) 10 mg DAILY PO Last administered on 12/26/18 09:02; Admin Dose 10 MG; Start 12/20/18 at 09:00 Sodium Chloride (Nacl) 1 gm WITH MEALS PO Last administered on 12/26/18 12:50; Admin Dose 1 GM; Start 12/21/18 at 08:00 Sertraline HCl (Zoloft) 25 mg DAILY PO Last administered on 12/26/18 09:01; Admin Dose 25 MG; Start 12/22/18 at 19:00 VTE Prophylaxis Risk score (from Nsg)>0 risk: 7 SCD applied (from Nsg): Yes Lines/Catheters IV Catheter Type: Saline Lock Central line still needed: No Alegria in Place: No Assessment/Plan Assessment/Plan 1. low Na--very slow recovery even on Na tabs 2. musc atrophy & weakness of old age & lessened activities 3. dementia/ depression/ low po scarlet intake--still refusing to eat independently, with assistance eats 40-50% only 4. htn--much better bp 5. hypo-thyroid--stable 6. ckd II--still drinks fluid minimally ---awaiting insurance authoriz for acute rehab admit, poss pt may not tolerate program exercise as required ---also look into placement into snf admit ---zoloft 25mg qd trial ---cont daily boost supp ---cont all supportive cares RANDOLPH BERGERON MD Dec 26, 2018 14:40
--- NOTE | 2018-12-26 15:07 | PN ---
Date/Time of Note Date/Time of Note DATE: 12/26/18 TIME: 14:41 Subjective tired, still weak, cannot walk alone from from bed to near by chair Objective Vitals Vital Signs Date Temp Pulse Resp B/P (MAP) Pulse Ox O2 O2 Flow FiO2 Time Delivery Rate 12/26/18 97.3 70 20 117/58 95 13:17 (77) 12/23/18 Room Air 14:01 Intake and Output 12/25/18 12/25/18 12/26/18 1515:00 23:00 07:00 IntakeIntake Total 300 ml 260 ml 120 ml OutputOutput Total 75 ml 200 ml BalanceBalance 300 ml 185 ml -80 ml a&o x2, in bed, rr, cta, no c/c/e, low ext musc atrophy+, did not cooperated with morning PT exercise 100% Results Result Diagram: 12/25/18 0604 12/25/18 0604 Medications Medications Current Medications IV Flush (NS 3 ml) 3 ml PER PROTOCOL IV ; Start 12/09/18 at 00:00 Ondansetron HCl (Zofran Inj) 4 mg Q6H PRN IV NAUSEA/VOMITING; Start 12/09/18 at 00:00 Acetaminophen (Tylenol Tab) 650 mg Q6H PRN PO .PAIN 1-3 OR TEMP Last administered on 12/21/18at 20:22; Admin Dose 650 MG; Start 12/09/18 at 00:00 Zolpidem Tartrate (Ambien) 5 mg QHS PRN PO .INSOMNIA Last administered on 12/23/18at 20:24; Admin Dose 5 MG; Start 12/09/18 at 00:00 Levothyroxine Sodium (Synthroid) 175 mcg DAILY@06 PO Last administered on 12/26/18at 05:40; Admin Dose 175 MCG; Start 12/10/18 at 06:00 Hydralazine HCl (Apresoline) 5 mg Q6H PRN IV SBP>180 OR DBP>100 Last administered on 12/21/18at 02:45; Admin Dose 5 MG; Start 12/09/18 at 09:00 Diclofenac Sodium (Voltaren 1% Gel) 4 gm QID TP Last administered on 12/26/18at 12:50; Admin Dose 4 GM; Start 12/10/18 at 09:30 Lisinopril (Zestril) 20 mg BID PO Last administered on 12/26/18 09:01; Admin Dose 20 MG; Start 12/11/18 at 21:00 Pantoprazole (Protonix Tab) 40 mg DAILY@06 PO Last administered on 12/26/18 05:40; Admin Dose 40 MG; Start 12/14/18 at 06:00 Folic Acid (Folic Acid) 1 mg DAILY PO Last administered on 12/26/18 09:01; Admin Dose 1 MG; Start 12/14/18 at 14:00 Tramadol HCl (Ultram) 50 mg Q6H PRN PO MODERATE PAIN LEVEL 4-6 Last administered on 12/20/18 18:32; Admin Dose 50 MG; Start 12/15/18 at 10:30 Magnesium Hydroxide (Milk Of Mag) 30 ml BID PRN PO CONSTIPATION; Start 12/15/18 at 10:30 Collagenase (Santyl) 1 applic DAILY TOP Last administered on 12/26/18 09:02; Admin Dose 1 APPLIC; Start 12/15/18 at 14:00 Calcium Carbonate (Tums) 500 mg DAILY PO Last administered on 12/26/18 09:00; Admin Dose 500 MG; Start 12/18/18 at 11:30 Amlodipine Besylate (Norvasc) 10 mg DAILY PO Last administered on 12/26/18 09:02; Admin Dose 10 MG; Start 12/20/18 at 09:00 Sodium Chloride (Nacl) 1 gm WITH MEALS PO Last administered on 12/26/18at 12:50; Admin Dose 1 GM; Start 12/21/18 at 08:00 Sertraline HCl (Zoloft) 25 mg DAILY PO Last administered on 12/26/18 09:01; Admin Dose 25 MG; Start 12/22/18 at 19:00 VTE Prophylaxis Risk score (from Nsg)>0 risk: 7 SCD applied (from Nsg): Yes Lines/Catheters IV Catheter Type: Saline Lock Central line still needed: No Alegria in Place: No Assessment/Plan Assessment/Plan 1. low Na--responding well to salt tabs, Na level rising 2. age related musc atrophy & weakness--still cannot manage independent ambulation just to near-by chair 3. dementia, depression, low po scarlet intake 4. htn--stablized 5. ckd II 6. hypo-thyroid ---cont current medication regiments, ---cont encouraging daily PT/ OT exercises, ---since he cannot tolerate 3hrs a day rehab exercises, pt is a unlikely candidate for acute rehab floor admit, ---[facility] has a male bed for short term ---thereafter if pt needs further longer term snf stay, [facility] serv can help pt & family for placement ---left message to daughter RANDOLPH BERGERON MD Dec 26, 2018 14:51
[2018-12-26] MEDS ORDERED: CALC200T26 PO (15:22)
[2018-12-26] MEDS ORDERED: UDMOM PO (15:22)
[2018-12-26] MEDS ORDERED: PANT40TA4 PO (15:22)
[2018-12-26] MEDS ORDERED: FOLI-49 PO (15:22)
[2018-12-26] MEDS ORDERED: [UNRECOGNIZED DRUG - CODE] PO (15:22)
[2018-12-26] MEDS ORDERED: ZOLP5TAB PO (15:22)
[2018-12-26] MEDS ORDERED: LISI-471 PO (15:22)
[2018-12-26] MEDS ORDERED: ACET325T33 PO (15:22)
[2018-12-26] MEDS ORDERED: SERT50TA6 PO (15:22)
[2018-12-26] MEDS ORDERED: AMLO-147 PO (15:22)
[2018-12-26] MEDS ORDERED: TRAM50TA2 PO (15:22)
--- NOTE | 2018-12-26 15:26 | DS ---
Date/Time of Note Date/Time of Note DATE: 12/26/18 TIME: 15:25 Discharge Summary Admission/Discharge Info Admit Date/Time Dec 08, 2018 at 23:39 Discharge Date/Time 12/27/2018 Discharge Diagnosis 1. low Na 2. old age related muscle atrophy, weakness & debility 3. dementia/ depression--low po scarlet intake 4. htn 5. ckd II 6. hypo-thyroid 7. anemia--family has refused invasive bone marrow bx Patient Condition: Fair Consults renal, heme, acute rehab, PT, OT, nutrition Procedures brain CT, cxr, serial blood & urine studies Hx of Present Illness pt was found down, family brought pt to [facility] er to be evaluated, incidental finding of anemia/ ckd II/ low Na allowed pt to be admitted, Hospital Course initially given ivf, many consultants were evaluating pt & planned procedures, family refused any of aggressive invasive procedures inc bone marrow bx, conservative medical treatments were endorsed & slowly pt responded to them, c urrent hgb above 10, current Na above 132, pt refused many times of 100% participation of PT & OT exercises & insurance denied of his acute rehab admission, but short term snf rehab was oked, pt remains vss, afebrile, a&o x2, very easily forgetful, with flat affect mostly, pt remains eating 40-50% food only while alone, pt cannot independently ambulate to 6-7 feet away chair from his bed, Home Meds Active Scripts Sodium Chloride (Sodium Chloride) 1,000 Mg Tablet.melquiades, 1 GM PO WITH MEALS for 30 Days, TAB Prov:RANDOLPH BERGERON MD 12/26/18 Folic Acid* (Folic Acid*) 1 Mg Tablet, 1 MG PO DAILY for 30 Days, TAB Prov:RANDOLPH BERGERON MD 12/26/18 Pantoprazole* (Pantoprazole*) 40 Mg Tablet.dr, 40 MG PO DAILY@06 for 30 Days Prov:RANDOLPH BERGERON MD 12/26/18 Magnesium Hydroxide* (Cuadra' MOM*) 30 Ml Susp, 30 ML PO BID PRN for CONSTIPATION for 30 Days Prov:RANDOLPH BERGERON MD 12/26/18 Calcium Carbonate (CALCIUM CARBONATE) 200 Mg Tab.chew, 500 MG PO DAILY for 30 Days, TAB.CHEW Prov:RANDOLPH BERGERON MD 12/26/18 Zolpidem Tartrate (Ambien Emery) 5 Mg Tablet, 5 MG PO QHS PRN for .INSOMNIA for 14 Days, TAB Prov:RANDOLPH BERGERON MD 12/26/18 Tramadol HCl (Tramadol HCl) 50 Mg Tablet, 50 MG PO Q6H PRN for MODERATE PAIN LEVEL 4-6 for 14 Days, TAB Prov:RANDOLPH BERGERON MD 12/26/18 Sertraline Hcl* (Sertraline Hcl*) 50 Mg Tablet, 25 MG PO DAILY for 30 Days, TAB Prov:RANDOLPH BERGERON MD 12/26/18 Acetaminophen* (Tylenol*) 325 Mg Tablet, 650 MG PO Q6H PRN for .PAIN 1-3 OR TEMP for 30 Days, TAB Prov:RANDOLPH BERGERON MD 12/26/18 Lisinopril* (Lisinopril*) 20 Mg Tablet, 20 MG PO BID for 30 Days, TAB Prov:RANDOLPH BERGERON MD 12/26/18 Amlodipine Besylate* (Amlodipine Besylate*) 10 Mg Tablet, 10 MG PO DAILY for 30 Days, TAB Prov:RANDOLPH BERGERON MD 12/26/18 Reported Medications Memantine HCl/Donepezil HCl (Namzaric 28 mg-10 mg Capsule) 1 Each Cap.spr.24, 1 CAP PO DAILY for 90 Days, #90 12/09/18 Diclofenac Sodium* (Voltaren* Gel) 1% -100 Gm Gel, 2 GM TOP QID, #1 TUB 12/09/18 Levothyroxine Sodium* (Levothyroxine Sodium*) 175 Mcg Tablet, 175 MCG PO QAM for 90 Days, #90 12/09/18 Discontinued Reported Medications Lisinopril* (Lisinopril*) 10 Mg Tablet, 10 MG PO DAILY for 90 Days 12/09/18 Follow-up Plan to [facility] transfer via ambulance for further muscle strengthening, ADL, mobility endurance training, keeping self safety Primary Care Provider Ricardo Fall Time spent on discharge: > 30 minutes RANDOLPH BERGERON MD Dec 26, 2018 15:26
[2018-12-26 19:53] VITALS: BP 130/60; PULSE 78; RESP 17
[2018-12-27 01:11] VITALS: BP 136/70; PULSE 75; RESP 18
[2018-12-27] MEDS: LEVOTHYROXINE 175 MCG TAB PO SCH (05:25)
[2018-12-27] MEDS: PANTOPRAZOLE (EC) 40 MG TAB PO SCH (05:25)
[2018-12-27 07:57] VITALS: BP 154/74; PULSE 76; RESP 18
[2018-12-27] MEDS: CALCIUM CARBONATE 500 MG CHEW TAB PO SCH (09:06)
[2018-12-27] MEDS: FOLIC ACID 1 MG TAB PO SCH (09:06)
[2018-12-27] MEDS: SODIUM CHLORIDE 1 GM TAB PO SCH ×2 (09:06→13:33)
[2018-12-27] MEDS: SERTRALINE 50 MG TAB PO SCH (09:07)
[2018-12-27] MEDS: AMLODIPINE 10 MG TAB PO SCH (09:07)
[2018-12-27] MEDS: LISINOPRIL 20 MG TAB PO SCH (09:07)
[2018-12-27] MEDS: DICLOFENAC SODIUM 1% GEL 100 GM TUBE TP SCH ×2 (09:07→13:35)
[2018-12-27] MEDS: COLLAGENASE 5 GM (UD JAR) TOP SCH (09:08)
[2018-12-27 13:48] VITALS: BP 155/73; PULSE 77; RESP 20
== END 2018-12-27 15:25 | DRG 641 ==
LOC: E/R 20:19 → TEL 23:39 → 2NE 12-12 11:41
PROVIDERS: ADMIT Internal Medicine; ATTEND Internal Medicine
DX: E87.1 Hypo-osmolality and hyponatremia (principal); D64.9 Anemia, unspecified; E86.0 Dehydration; E03.9 Hypothyroidism, unspecified; F32.9 Major depressive disorder, single episode, unspecified; G30.9 Alzheimer's disease, unspecified; F02.80 Dementia in other diseases classified elsewhere, unspecified severity, without behavioral disturbance, psychotic disturbance, mood disturbance, and anxiety; I12.9 Hypertensive chronic kidney disease with stage 1 through stage 4 chronic kidney disease, or unspecified chronic kidney disease; L89.159 Pressure ulcer of sacral region, unspecified stage; M17.0 Bilateral primary osteoarthritis of knee; M62.50 Muscle wasting and atrophy, not elsewhere classified, unspecified site; N18.2 Chronic kidney disease, stage 2 (mild); R54 Age-related physical debility; R63.3 Feeding difficulties; R29.6 Repeated falls; Z85.46 Personal history of malignant neoplasm of prostate
CPT/HCPCS: 36415; 70450; 71045; 80048; 80053; 81001; 82270; 82436; 82533; 82607; 82668; 82728; 82746; 82962; 83010; 83036; 83540; 83615; 83735; 83930; 83935; 84133; 84155; 84165; 84295; 84300; 84439; 84443; 84481; 85014; 85018; 85025; 85045; 85610; 85651; 85730; 86880; 93005; 97110; 97116; 97163; 97530; C9113; J0360; J7030; Q9967